=== PATIENT | male | born 1940 | race Caucasian/White ===

== ENCOUNTER 2017-04-20 07:52 | Inpatient (IN) ==
[2017-04-20] MEDS ORDERED: IOPAMIDOL 100 ML BOTTLE IJ ONE (07:53)
[2017-04-20] MEDS ORDERED: ASPIRIN 81 MG TAB.CHEW CHEWED ONE (08:05)
[2017-04-20] MEDS ORDERED: 0.9 % SODIUM CHLORIDE 1,000 ML IV ONE (08:08)
--- NOTE | 2017-04-20 08:20 | Emergency Department Note ---
SOB HPI - General Chief Complaint: Shortness of Breath/Dyspnea Stated Complaint: Sob x1 hour Time Seen by Provider: 04/20/17 07:58 Source: patient, EMS Mode of arrival: EMS Limitations: no limitations - History of Present Illness 76-year-old male with a history of Parkinson's has been complaining of shortness of breath and cough over the past week. Seen by his primary care provider in [place] Dr. Barnes performed chest x-rays week ago which was negative started on an antibiotic amoxicillin and an inhaler. States he does not like to use the inhaler and has not been using it. Been taking his antibiotic. Planing of increased shortness of breath or chest pain with radiation of pain to both arms this morning when he woke up approximately 1 hour ago. Has no cardiac history as he does not have atrial fibrillation but was told he had some extrasystoles in the past which were benign. He does state that he occasionally feels a cup-like sensation in his heart is pretty put him onFosinopril 10 mg 1/4 tab daily, patient states not been using it over the last 4 days. E MTs arrived they heard wheezing and he was started on a DuoNeb.. Has minimal wheezing at this time. It was a dull chest pain to the left chest 1 or 2/10. Arrived as dull in nature. He states gets anxiety attacks a lot. Not been diagnosed with atrial fibrillation his EKG shows A. fib. Rate of 119. Oxygen saturations are 95% on room air. - Related Data Home Medications Medication Instructions Recorded Confirmed Amantadine HCl [Amantadine] 50 mg PO BID 09/30/16 04/20/17 Calcium Carb/Vit B Comp/FA 1 each PO DAILY 09/30/16 04/20/17 [Complex B-50 Tablet] Carbidopa/Levodopa 1 each PO TID 09/30/16 04/20/17 [Carbidopa-Levodopa 25-100 Tab] Citalopram [Celexa] 10 mg PO DAILY 09/30/16 04/20/17 LORazepam [Ativan] 0.25 mg PO Q6HP PRN 09/30/16 04/20/17 Multivit-Min/FA/Lycopen/Lutein 1 each PO DAILY 09/30/16 04/20/17 [Centrum Silver Men Tablet] Triamterene/Hydrochlorothiazid 0.5 tab PO DAILY 09/30/16 04/20/17 [Triamterene-Hctz 37.5-25 mg Tb] Allergies Allergy/AdvReac Type Severity Reaction Status Date / Time No Known Drug Allergies Allergy Verified 04/20/17 07:56 Review of Systems All systems ED: reviewed and negative except as stated. Constitutional: Denies: fever, chills Cardiovascular: Reports: as per HPI, chest pain Respiratory: Reports: cough, dyspnea, wheezes Gastrointestinal: Denies: abdominal pain Genitourinary: Denies: urgency Musculoskeletal: Denies: back pain Integumentary: Denies: rash Neurological: Reports: other (Has Parkinson's has tremors). Denies: headache, weakness Past Medical History - Past Medical History Medical history: Reports: other (Parkinson's, chronic constipation issues) Surgical history ED: Reports: appendectomy, other (back) Family history: Reports: CAD/NH (father at 81) - Social History smoking status: Never smoker Alcohol use: Reports: None Drug use: Reports: none Physical Exam - General Limitations: no limitations General appearance: alert - Head Head exam: atraumatic, normocephalic - Eye Eye exam: Present: normal appearance, PERRL - ENT ENT exam: normal exam, normal oropharynx, mucous membranes moist - Neck Neck exam: Present: normal inspection, full ROM, trachea midline - Chest Chest inspection: Present: normal inspection, symmetric chest wall rise. Absent : tenderness - Respiratory Respiratory exam: Present: normal lung sounds bilaterally. Absent: respiratory distress, wheezes - Cardiovascular Cardiovascular exam: Present: regular rate, bradycardia, irregular rhythm. Absent: tachycardia - Abdominal Exam Abdominal exam: Present: soft. Absent: distention, tenderness, guarding, rebound - Extremities Exam Extremities exam: Present: normal inspection, full ROM. Absent: tenderness - Back Exam Back exam: Present: normal inspection, full ROM. Absent: tenderness - Neurological Exam Neurological exam: Present: alert, oriented X3, CN II-XII intact - Psychiatric Psychiatric exam: Present: normal affect, normal mood - Skin Skin exam: Present: warm, dry Course Vital Signs Temperature 96.9 F L 04/20/17 07:53 Pulse Rate 117 H 04/20/17 07:53 Respiratory Rate 11 L 04/20/17 07:53 Blood Pressure 174/106 04/20/17 07:53 Pulse Oximetry (%) 95 04/20/17 07:53 Temperature 96.9 F L 04/20/17 07:53 Pulse Rate 117 H 04/20/17 07:53 Respiratory Rate 11 L 04/20/17 07:53 Blood Pressure 174/106 04/20/17 07:53 Pulse Oximetry (%) 95 04/20/17 07:53 Shortness of Breath/Dyspnea - MDM Narrative Medical decision making narrative: Do not have any old EKGs at this time appears patient may have a new onset A. fib., This x-ray reveals CHF possible atelectasis or infiltrate in the right lower lobe. Read by the radiologist. Given Lasix 40 mg IV laboratory tests are still pending. Patient transferred to the care of Dr. Kiran at 0900 - Lab Data Result diagrams: 04/20/17 08:23 04/20/17 08:23 Disposition Pt seen by ENER[employer] [facility]OKER/PA only: No Referrals: Drew Barnes MD [Primary Care Provider] -
[2017-04-20] MEDS ORDERED: FUROSEMIDE 40 MG/4 ML VIAL IV ONE (08:52)
[2017-04-20 09:13] LABS: Basophils # (Auto) 0.1 K/mcL (0.0-0.3); Eosinophils # (Auto) 0.2 K/mcL (0.0-0.7); Eosinophils % (Auto) 3.6 % (0.0-7.0); Granulocytes % (Auto) 53.6 % (38.0-78.0); Lymphocytes # (Auto) 2.1 K/mcL (1.5-4.8); Lymphocytes % (Auto) 30.8 % (15.5-49.0); Mean Cell Volume 87.6 fL (80.0-100.0); Mean Corpuscular Hemoglobin 30.6 pg (26.0-34.0); Monocytes # (Auto) 0.8 K/mcL (0.1-0.9); Platelet Count 200 K/mcL (140-440); RBC 4.52 M/mcL (4.50-5.90); Red Cell Distribution Width 13.6 % (11.5-14.5)
[2017-04-20 09:20] LABS: Creatine Kinase MB 1.8 ng/ml (0-4.9); Myoglobin 55 ng/ml (28-72)
[2017-04-20 09:23] LABS: ALT/SGPT 10 U/l (0-40); Albumin 4.2 gm/dL (3.2-5.2); Albumin/Globulin Ratio 1.3 (1.0-2.3); Alkaline Phosphatase 78 U/L (39-117); Blood Urea Nitrogen 20 mg/dl (8-23); Creatine Kinase 155 IU/L (24-195)
--- NOTE | 2017-04-20 09:44 | XRay Report ---
CLINICAL INFORMATION: Chest pain COMPARISON: 04/11/2017 FINDINGS: The heart is moderately enlarged, but unchanged. Moderate hiatal hernia again noted. Mediastinum is otherwise normal. The pulmonary vessels are mildly congested with mild interstitial edema throughout both lungs. Minor basilar airspace disease likely atelectasis. IMPRESSION: 1. Mild CHF 2. Moderate hiatal hernia - stable 3. Minor bibasilar airspace seen - likely atelectasis Interpreted and Authenticated by: Subhash Peter 04/20/17
[2017-04-20 10:39] LABS: Appearance,Urine CLEAR; Bilirubin,Urine NEG (NEG); Color,Urine YELLOW; Glucose,Urine (UA) NEGATIVE (NEG); Leukocyte Esterase,Urine NEG /uL (NEG); Nitrate,Urine NEG (NEG); Protein,Urine NEG (NEG); Specific Gravity,Urine 1.015 (1.000-1.035); Urine Blood NEG mg/dL (<0.03); Urobilinogen,Urine NEG (NEG)
--- NOTE | 2017-04-20 11:18 | Emergency Department Note ---
General Adult HPI - General Chief complaint: Shortness of Breath/Dyspnea Stated complaint: Sob x1 hour Time Seen by Provider: 04/20/17 07:58 Source: patient, EMS Mode of arrival: EMS Limitations: no limitations - Related Data Home Medications Medication Instructions Recorded Confirmed Amantadine HCl [Amantadine] 50 mg PO BID 09/30/16 04/20/17 Calcium Carb/Vit B Comp/FA 1 each PO DAILY 09/30/16 04/20/17 [Complex B-50 Tablet] Carbidopa/Levodopa 1 each PO TID 09/30/16 04/20/17 [Carbidopa-Levodopa 25-100 Tab] Citalopram [Celexa] 10 mg PO DAILY 09/30/16 04/20/17 LORazepam [Ativan] 0.25 mg PO Q6HP PRN 09/30/16 04/20/17 Multivit-Min/FA/Lycopen/Lutein 1 each PO DAILY 09/30/16 04/20/17 [Centrum Silver Men Tablet] Triamterene/Hydrochlorothiazid 0.5 tab PO DAILY 09/30/16 04/20/17 [Triamterene-Hctz 37.5-25 mg Tb] Allergies Allergy/AdvReac Type Severity Reaction Status Date / Time No Known Drug Allergies Allergy Verified 04/20/17 07:56 Review of Systems Constitutional: Denies: fever, chills Cardiovascular: Reports: as per HPI, chest pain Respiratory: Reports: cough, dyspnea, wheezes Gastrointestinal: Denies: abdominal pain Genitourinary: Denies: urgency Musculoskeletal: Denies: back pain Integumentary: Denies: rash Neurological: Reports: other (Has Parkinson's has tremors). Denies: headache, weakness Past Medical History - Past Medical History Medical history: Reports: other (Parkinson's, chronic constipation issues) Surgical history ED: Reports: appendectomy, other (back) - Social History smoking status: Never smoker Alcohol use: Reports: None Drug use: Reports: none Physical Exam - General Limitations: no limitations General appearance: alert Course Vital Signs Temperature 96.9 F L 04/20/17 07:53 Pulse Rate 117 H 04/20/17 07:53 Respiratory Rate 11 L 04/20/17 07:53 Blood Pressure 174/106 04/20/17 07:53 Pulse Oximetry (%) 95 04/20/17 07:53 Temperature 96.9 F L 04/20/17 07:53 Pulse Rate 84 04/20/17 10:24 Respiratory Rate 20 04/20/17 10:24 Blood Pressure 104/58 04/20/17 10:24 Pulse Oximetry (%) 96 04/20/17 10:17 Medical Decision Making - MDM Narrative Medical decision making narrative: See documentation from Dr. Nixon who saw the patient before change of shift and then I have followed after change of shift. Patient his report that he is generally been fairly healthy but with further questioning he did have a history of irregular heart but it was described as just a few beats and was reassured. 2 years ago though he was told that his left heart was not working as well and possibly was enlarged. He was tried on lisinopril but did not tolerate and then was tried on fosinopril which he takes as one fourth of a tablet at 10 mg. He was not put on furosemide but on Maxide also due to his relatively low blood pressure. Yesterday was seen by his primary physician, Dr. Barnes, and treated for bronchitis with amoxicillin and albuterol. He used the albuterol once last night and it did not do a whole lot of anything special for him. In the emergency room he remained relatively stable but blood pressures were in the 95 range. Pulse in the 85-90 range with new onset A. fib. His elevated BNP and abnormal chest x-ray were compatible with CHF. Because of the elevated d-dimer and possible infiltrates, CT angiogram was obtained and was indicative of small PEs in the right upper and right lower lung tripathi. Other labs include a lactic acid that was negative at 1.0 and troponin less than 0.01. His proBNP was 1170. Glucose was 108. Creatinine 1.2. Liver enzymes were unremarkable. CBC was with a white count of 6.9 hemoglobin 13.9 hematocrit 39.6. INR was 1.0. UA was unremarkable. EKG with possible prolonged QT interval, A. fib, and left axis deviation. Initial heart rate on the EKG was 119 but with him at bedrest he was in the upper 80s. Coronary artery calcifications were found to be heavy and diffuse. Discussing the circumstances he obviously needs additional workup and monitoring and treatment. Hospitalist was contacted who agreed to assume care. - Lab Data Result diagrams: 04/20/17 08:23 04/20/17 08:23 Lab Results 04/20/17 04/20/17 04/20/17 Range/Units 08:23 08:23 08:23 WBC 6.9 (4.5-11.0) K/mcL RBC 4.52 (4.50-5.90) M/mcL Hgb 13.9 (13.5-16.5) g/dL Hct 39.6 L (41.0-55.0) % MCV 87.6 (80.0-100.0) fL MCH 30.6 (26.0-34.0) pg MCHC 35.0 (31.0-36.0) g/dL RDW 13.6 (11.5-14.5) % Plt Count 200 (140-440) K/mcL MPV 9.0 (7.4-10.4) fL Gran % 53.6 (38.0-78.0) % Lymph % (Auto) 30.8 (15.5-49.0) % Vance % (Auto) 11.0 (1.0-12.0) % Eos % (Auto) 3.6 (0.0-7.0) % Baso % (Auto) 1.0 (0.0-2.0) % Gran # 3.7 (1.8-8.0) K/mcL Lymph # (Auto) 2.1 (1.5-4.8) K/mcL [place] # (Auto) 0.8 (0.1-0.9) K/mcL Eos # (Auto) 0.2 (0.0-0.7) K/mcL Baso # (Auto) 0.1 (0.0-0.3) K/mcL PT 13.0 (11.9-14.5) sec INR 1.0 (0.9-1.1) D-Dimer 2.42 H (0.00-0.40) ug/ml VBG Lactic Acid (0.5-2.2) mmol/L Sodium 140 (133-145) mmol/L Potassium 3.9 (3.3-5.1) mmol/L Chloride 101 (96-108) mmol/L Carbon Dioxide 25 (22-30) mmol/L Anion Gap 14.0 (8-16) BUN 20 (8-23) mg/dl Creatinine 1.2 (0.7-1.2) mg/dl GFR Calculation 59 Glucose 108 H (70-105) mg/dL Calcium 9.2 (8.6-10.4) mg/dl Total Bilirubin 0.3 (0.0-1.0) mg/dL AST 20 (0-37) U/l ALT 10 (0-40) U/l Alkaline Phosphatase 78 (39-117) U/L Total Creatine Kinase 155 (24-195) IU/L CK-MB (CK-2) 1.8 (0-4.9) ng/ml Myoglobin 55 (28-72) ng/ml Troponin T (0-0.03) ng/ml NT-Pro-B Natriuret Pep 1170.0 H (0-125) pg/ml Total Protein 7.4 (5.9-8.4) gm/dL Albumin 4.2 (3.2-5.2) gm/dL Globulin 3.2 (2.2-3.7) gm/dL Albumin/Globulin Ratio 1.3 (1.0-2.3) Urine Color Urine Appearance Urine pH (5.0-9.0) Ur Specific [place] (1.000-1.035) Urine Protein (NEG) mg/dL Urine Glucose (UA) (NEG) mg/dL Urine Ketones (NEG) mg/dL Urine Occult Blood (<0.03) mg/dL Urine Nitrate (NEG) Urine Bilirubin (NEG) mg/dL Urine Urobilinogen (NEG) mg/dL Ur Leukocyte Esterase (NEG) /uL Ur Culture Indicated? 04/20/17 04/20/17 04/20/17 Range/Units 08:23 09:12 09:40 WBC (4.5-11.0) K/mcL RBC (4.50-5.90) M/mcL Hgb (13.5-16.5) g/dL Hct (41.0-55.0) % MCV (80.0-100.0) fL MCH (26.0-34.0) pg MCHC (31.0-36.0) g/dL RDW (11.5-14.5) % Plt Count (140-440) K/mcL MPV (7.4-10.4) fL Gran % (38.0-78.0) % Lymph % (Auto) (15.5-49.0) % Vance % (Auto) (1.0-12.0) % Eos % (Auto) (0.0-7.0) % Baso % (Auto) (0.0-2.0) % Gran # (1.8-8.0) K/mcL Lymph # (Auto) (1.5-4.8) K/mcL [place]ance # (Auto) (0.1-0.9) K/mcL Eos # (Auto) (0.0-0.7) K/mcL Baso # (Auto) (0.0-0.3) K/mcL PT (11.9-14.5) sec INR (0.9-1.1) D-Dimer (0.00-0.40) ug/ml VBG Lactic Acid 1.0 (0.5-2.2) mmol/L Sodium (133-145) mmol/L Potassium (3.3-5.1) mmol/L Chloride (96-108) mmol/L Carbon Dioxide (22-30) mmol/L Anion Gap (8-16) BUN (8-23) mg/dl Creatinine (0.7-1.2) mg/dl GFR Calculation Glucose (70-105) mg/dL Calcium (8.6-10.4) mg/dl Total Bilirubin (0.0-1.0) mg/dL AST (0-37) U/l ALT (0-40) U/l Alkaline Phosphatase (39-117) U/L Total Creatine Kinase (24-195) IU/L CK-MB (CK-2) (0-4.9) ng/ml Myoglobin (28-72) ng/ml Troponin T < 0.01 (0-0.03) ng/ml NT-Pro-B Natriuret Pep (0-125) pg/ml Total Protein (5.9-8.4) gm/dL Albumin (3.2-5.2) gm/dL Globulin (2.2-3.7) gm/dL Albumin/Globulin Ratio (1.0-2.3) Urine Color Yellow Urine Appearance Clear Urine pH 6.0 (5.0-9.0) Ur Specific [place] 1.015 (1.000-1.035) Urine Protein Neg (NEG) mg/dL Urine Glucose (UA) Negative (NEG) mg/dL Urine Ketones Neg (NEG) mg/dL Urine Occult Blood Neg (<0.03) mg/dL Urine Nitrate Neg (NEG) Urine Bilirubin Neg (NEG) mg/dL Urine Urobilinogen Neg (NEG) mg/dL Ur Leukocyte Esterase Neg (NEG) /uL Ur Culture Indicated? No Disposition Pt seen by TABLE COVER FOLDER/PA only: No Clinical Impression: Cardiomegaly, Coronary artery calcification of [place] artery, Parkinson disease Pulmonary emboli Qualifiers: Pulmonary embolism type: other Chronicity: acute Acute cor pulmonale presence: without acute cor pulmonale Qualified Code(s): I26.99 - Other pulmonary embolism without acute cor pulmonale Atrial fibrillation Qualifiers: Atrial fibrillation type: unspecified Qualified Code(s): I48.91 - Unspecified atrial fibrillation CHF exacerbation Qualifiers: Congestive heart failure type: systolic Qualified Code(s): I50.23 - Acute on chronic systolic (congestive) heart failure Disposition: Xfer As Inpt ([facility]) Referrals: Drew Barnes MD [Primary Care Provider] -
[2017-04-20] MEDS ORDERED: ENOXAPARIN 100 MG/ML SYRINGE SQ ONE (11:20)
--- NOTE | 2017-04-20 12:18 | Internal Med History&Physical ---
Medical - H&P: HPI Patient information: Note initiated : 04/20/17 at 12:16 pm Patient: Geoffrey Purdy 76 y/o M admitted on for SOB and chest pain. History of present illness: Mr. Purdy is a 76 year old man who presents today complaining of left-sided chest discomfort since this morning. He apparently saw his primary care physician about 1 week ago complaining of cough and shortness of breath, and was treated for bronchitis with antibiotics, which he took, and an inhaler, which he did not. He also went back to see his primary care physician yesterday , complaining of continued chest congestion. They told him to complete the amoxicillin, and use the inhaler as needed. He notes that he has been sitting around quite a bit over the last week, as he is just been quite fatigued. 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 This morning he was resting in his recliner, and says he awakened with pain process chest that extended down into both arms. He says sometimes he will have that sensation when he is feeling anxious, so he did not worry but thought it would pass, it did not pass after several minutes, so he did call 911. He says a week ago he was coughing up thick chunks of sputum, and now his sputum seems clear. He is noticing more shortness of breath, particularly more dyspnea with exertion over the last week. He is not aware of fever or chills, headaches or dizziness, new eye or ear symptoms, sore throat. He denies palpitations. He denies abdominal pain, nausea or vomiting, diarrhea or constipation, dysuria. His notes that they have been cleaning out the patient's parents house, and he opened a refrigerator that had been open for a couple of years, and there was a great stench that came out of the air. She wonders if that could have affected his lungs. In the emergency room today, he had a positive d-dimer. He subsequently underwent CT of the chest which did show pulmonary emboli. Workup was also suggestive of heart failure and new onset atrial fibrillation. The patient generally does not get flu shots, as he does not like to take any sort of medicine. His chart indicates he did have a Pneumovax in April 2016. Past medical history: Parkinson's disease Constipation Depression Fatigue Lumbar spondylosis with radiculopathy Depression and panic disorder, anxiety CHF with ejection fraction 45% in July 2015 venous insufficiency Anemia Past irregular heart rate, with extra beats Obesity Hypogonadism Hyperlipidemia Stage II chronic kidney disease Hypertension Medications: Dyazide 37.525 1 tab daily Carbidopa levodopa 25-100 1 tab 4 times daily Vitamin D 5000 units daily Lorazepam 1 mg a quarter tablet 3 times daily as needed Amantadine 100 mg half tab p.o. twice daily Aleve 220 mg twice a day as needed, used rarely Fosinopril 10 mg a quarter tablet daily Celexa 10 mg half tab daily Amoxicillin 875 mg 1 tab twice daily Ventolin inhaler 2 puffs 4 times daily as needed Robitussin AC 1 teaspoon every 4 hours as needed Tussionex 1 teaspoon twice daily as needed Lasix 40 mg was just started yesterday, but not taken Allergies: Gabapentin Lisinopril Family history: Father had coronary disease, [place]. Mother with dementia and history of stroke. Brother had diabetes and coronary disease.. Social history: Patient denies use of alcohol, tobacco, drugs. He is and lives with his . 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 He has been much more sedentary than usual over the last week. Medical - H&P: Meds Home Medications Medication Instructions Recorded Confirmed Type Amantadine HCl [Amantadine] 50 mg PO BID 09/30/16 04/20/17 History Calcium Carb/Vit B Comp/FA 1 each PO DAILY 09/30/16 04/20/17 History [Complex B-50 Tablet] Carbidopa/Levodopa 1 each PO TID 09/30/16 04/20/17 History [Carbidopa-Levodopa 25-100 Tab] Citalopram [Celexa] 5 mg PO DAILY 09/30/16 04/20/17 History LORazepam [Ativan] 0.25 mg PO Q6HP PRN 09/30/16 04/20/17 History Multivit-Min/FA/Lycopen/Lutein 1 each PO DAILY 09/30/16 04/20/17 History [Centrum Silver Men Tablet] Triamterene/Hydrochlorothiazid 1 tab PO DAILY 09/30/16 04/20/17 History [Triamterene-Hctz 37.5-25 mg Tb] Allergies Allergy/AdvReac Type Severity Reaction Status Date / Time No Known Drug Allergies Allergy Verified 04/20/17 07:56 Medical - H&P: Exam - Constitutional Vitals: Temp Pulse Resp BP Pulse Ox 96.9 F L 38 L 19 144/76 93 04/20/17 07:53 04/20/17 11:48 04/20/17 11:48 04/20/17 11:48 04/20/17 11:48 This is an elderly man sitting up in bed, eating dinner. He is in no acute distress. Head: Normocephalic, atraumatic. Ears: TMs and canals are clear. Eyes: PERRLA, EOMI, anicteric, although there is a slight right upper lid droop Pharynx: Pharynx is clear. Mucosa appears normal. Neck: Shows no obvious lymphadenopathy, JVD, thyromegaly, bruits. Neck is supple. Cardiac exam: Irregularly irregular rhythm, with normal S1 and S2. No murmurs, rubs, gallops are noted Lungs: Show fairly diffuse crackles and wheezes throughout both lung tripathi. There is no obvious accessory muscle use. She has a frequent congested sounding cough. Abdomen: Is soft and nontender, without obvious masses. Bowel sounds are normoactive. Extremities: Show 2-3+ pitting edema two thirds of the way up his shins. Neurologic: Patient is alert and oriented. Mood and affect are normal. He does appear to have a masked facies. Resting tremor is noted, particularly in the right hand. Exam is otherwise grossly nonfocal, but not tested in detail. Skin exam: Does not show any rashes or other worrisome lesions. Medical - H&P: Reslt - Labs CBC & Chem 7: 04/20/17 08:23 04/20/17 08:23 Labs: Short CBC 04/20/17 Range/Units 08:23 WBC 6.9 (4.5-11.0) K/mcL Hgb 13.9 (13.5-16.5) g/dL Hct 39.6 L (41.0-55.0) % Plt Count 200 (140-440) K/mcL BMP 04/20/17 08:23 Sodium 140 Potassium 3.9 Chloride 101 Carbon Dioxide 25 BUN 20 Creatinine 1.2 Glucose 108 H Calcium 9.2 Cardiac Enzymes 04/20/17 04/20/17 Range/Units 08:23 08:23 Total Creatine Kinase 155 (24-195) IU/L CK-MB (CK-2) 1.8 (0-4.9) ng/ml Troponin T < 0.01 (0-0.03) ng/ml Liver Function 04/20/17 Range/Units 08:23 Total Bilirubin 0.3 (0.0-1.0) mg/dL AST 20 (0-37) U/l ALT 10 (0-40) U/l Alkaline Phosphatase 78 (39-117) U/L Albumin 4.2 (3.2-5.2) gm/dL Urine 04/20/17 Range/Units 09:40 Urine Color Yellow Urine Appearance Clear Urine pH 6.0 (5.0-9.0) Ur Specific [place] 1.015 (1.000-1.035) Urine Protein Neg (NEG) mg/dL Urine Glucose (UA) Negative (NEG) mg/dL April 20: D-dimer is elevated at 2.42 PT is 13 with INR of 1.0 Lactic acid is normal at 1.0 Initial troponin is normal at less than 0.01. Troponin #2 is elevated at 0.08. ProBNP is elevated at 1170. Next Urinalysis is essentially normal. Echocardiogram: Was done, with results pending. CT angiogram: Small emboli are seen within the segmental and subsegmental pulmonary arteries to the anterior segment of the right upper lobe and medial posterior basilar segmental right lower lobe. Mild enlargement of central pulmonary arteries suggest pulmonary hypertension. Mild underlying CHF. Heavy and chronic plaque throughout all coronary arteries. Moderate underlying chronic bronchitis, with bronchiectasis noted in the medial basilar segment of the left lower lobe. Moderate hiatal hernia. Chest x-ray: Shows moderate cardiomegaly. Mild pulmonary vascular congestion, consistent with CHF. Mild bibasilar atelectasis. Medical - H&P: A/P (1) Elevated troponin I level Current visit: Yes Status: Acute (2) Pulmonary emboli Current visit: Yes Status: Acute (3) Atrial fibrillation Current visit: Yes Status: Acute (4) CHF exacerbation Current visit: Yes Status: Acute (5) Parkinson disease Current visit: No Status: Chronic - Narrative A/P Narrative: #1. Pulmonary. Patient presents with chest pain and shortness of breath. CT scan is positive for pulmonary emboli. -Patient was loaded with Lovenox in the emergency room. Continue subcu Lovenox , therapeutic dose. -Start oral Coumadin. -Monitor on telemetry. -Oxygen, albuterol nebulizer treatments, pulmonary toilet, cough meds as needed 2. Cardiac. Chest x-ray and CAT scan are suggestive of mild CHF exacerbation. -IV Lasix. -Monitor closely. Atrial fibrillation. This appears to be a new finding. This may be in response to pulmonary emboli, or a separate process. -Patient will be anticoagulated with Lovenox. He will then be transitioned to Coumadin. I discussed with he and his that he may need long-term anticoagulation if the A. fib persists. -At this point, he is rate controlled. Continue to monitor. Elevated troponin. It is unclear if this might be due to his CHF exacerbation and pulmonary emboli. -Order EKG. -Trend troponins. -Consider cardiology consult. 3. Neurologic. History of Parkinson's disease. Continue Sinemet and amantadine. -encouraged the patient to consider follow-up with a neurology specialist at least once a year. -PT and OT evaluations. Swallow eval. #4. Infectious disease. Patient has had a recent upper respiratory infection. It appears he may have bronchitis, which may be stressing his heart more. Cover with empiric Rocephin and Zithromax. Next 5. CODE STATUS: Next 6. DVT prophylaxis: Lovenox. 7. History of depression and anxiety. Continue Celexa, as needed Ativan. This visit has taken approximately 60 minutes so far today, to review records obtained from the primary care office, review the case with the ER MD, interview and examine the patient, review plan of care with the patient and his , and write orders.
--- NOTE | 2017-04-20 12:54 | Cat Scan Report ---
CLINICAL INFORMATION: Shortness of breath elevated d-dimer COMPARISON: None TECHNIQUE: Axial images obtained through the chest. 80 cc intravenous contrast administration was administered, and scanning was performed during pulmonary arterial phase. Sagittally and coronally reformatted images were obtained. MIP reformatted images. FINDINGS: Pulmonary parenchymal windows show mild chronic bronchitis examination with elevated lung volumes and slight dilatation and wall thickening of the bronchi. Cicitration atelectasis noted medial basilar segment left lower lobe and scattered scarring in the periphery of both lower lobes no nodules appreciated. The pleural spaces are normal Mediastinal windows show small emboli in the anterior segment of the right upper lobe and segmental and subsegmental right lower lobe pulmonary arteries including the medial and posterior basilar segments. There are no emboli seen within the left lower lobe pulmonary arteries. The central pulmonary arteries are mildly enlarged with the main pulmonary artery measuring 4.2 cm. There is no evidence of right heart chamber enlargement suggestive elevated right heart pressures. The heart is mildly enlarged and there is calcification present within the mitral and aortic valves. There is mild dilatation of left ventricular chamber. Extraordinarily heavy fibrofatty and calcific atherosclerotic plaque seen throughout all the coronary arteries. There is no adenopathy in the mediastinal hilar or axillary regions. Moderate hiatal hernia is noted The thyroid is unremarkable. Bones and soft tissues of the chest wall are unremarkable. IMPRESSION: 1. Small emboli within the segmental and subsegmental pulmonary arteries to the anterior segment right upper lobe and medial/posterior basilar segmental right lower lobe. 2. Mild enlargement of the central pulmonary arteries suggesting pulmonary hypertension. 3. Mild underlying CHF - better seen on plain film. Extremely heavy fibrofatty and calcific atheromatous chronic plaque throughout all the coronary arteries. It is highly likely the patient has either occlusive or subocclusive coronary artery disease. Suggest cardiology referral for stress testing 4. Moderate underlying chronic bronchitis. Chronic cicitration bronchiectasis/atelectasis medial basilar segment left lower lobe 5. Moderate hiatal hernia Interpreted and Authenticated by: Subhash Peter 04/20/17
[2017-04-20] MEDS ORDERED: ONDANSETRON 4 MG/2 ML VIAL IV PRN (14:12)
[2017-04-20] MEDS ORDERED: ALBUTEROL SULFATE 2.5 MG/3 ML NEBULIZER NEB PRN (14:12)
[2017-04-20] MEDS ORDERED: NALOXONE HCL 0.4 MG/ML VIAL IV PRN (14:12)
[2017-04-20] MEDS ORDERED: MAGNESIUM HYDROXIDE 30 ML ORAL.SUSP PO PRN (14:12)
[2017-04-20] MEDS: WARFARIN 5 MG TABLET PO SCH (15:50)
[2017-04-20] MEDS: CARBIDOPA/LEVODOPA 25/100 TABLET PO SCH ×2 (15:50→20:07)
[2017-04-20] MEDS: ACETAMINOPHEN 325 MG TABLET PO PRN (19:29)
[2017-04-20] MEDS: ENOXAPARIN 100 MG/ML SYRINGE SQ SCH (20:07)
[2017-04-20] MEDS: DOCUSATE SODIUM 100 MG CAPSULE PO SCH (20:07)
[2017-04-20] MEDS: AMANTADINE HCL 50 MG PO SCH (20:07)
[2017-04-20] MEDS: FAMOTIDINE 20 MG TABLET PO SCH (20:07)
[2017-04-21] MEDS: LORazepam 1 MG TABLET PO PRN (00:55)
[2017-04-21] MEDS ORDERED: METOPROLOL TARTRATE 5 MG/5 ML VIAL IV ONE ×2 (03:13→03:24)
[2017-04-21] MEDS ORDERED: LORazepam 2 MG/ML VIAL IV ONE (03:33)
[2017-04-21] MEDS ORDERED: LORazepam 2 MG/ML VIAL ONE (03:44)
[2017-04-21] MEDS ORDERED: METOPROLOL TARTRATE 5 MG/5 ML VIAL IV PRN (07:42)
[2017-04-21] MEDS ORDERED: LORazepam 2 MG/ML VIAL IV PRN (07:44)
[2017-04-21] MEDS ORDERED: ASPIRIN 81 MG TAB.CHEW PO ONE (08:00)
[2017-04-21 08:12] LABS: ALT/SGPT < 5 U/l (0-40); Albumin 3.9 gm/dL (3.2-5.2); Albumin/Globulin Ratio 1.2 (1.0-2.3); Alkaline Phosphatase 78 U/L (39-117); Bilirubin,Direct < 0.2 mg/dL (0.0-0.3); Blood Urea Nitrogen 23 mg/dl (8-23); Gamma Glutamyl Transpeptidase 18 U/L (8-61); Magnesium 2.1 mg/dL (1.6-2.5); Uric Acid 7.5 mg/dL (2.5-8.0)
[2017-04-21] MEDS: DOCUSATE SODIUM 100 MG CAPSULE PO SCH ×2 (08:34→20:41)
[2017-04-21] MEDS: MULTIVIT,THER IRON,CA,FA & MIN 1 TABLET PO SCH (08:34)
[2017-04-21] MEDS: FAMOTIDINE 20 MG TABLET PO SCH ×2 (08:34→20:41)
[2017-04-21] MEDS: ENOXAPARIN 100 MG/ML SYRINGE SQ SCH ×2 (08:34→20:41)
[2017-04-21] MEDS: CARBIDOPA/LEVODOPA 25/100 TABLET PO SCH ×3 (08:34→20:52)
[2017-04-21] MEDS: VITAMIN B COMPLEX 1 CAPSULE PO SCH (08:34)
[2017-04-21] MEDS: CITALOPRAM 20 MG TABLET PO SCH (08:34)
[2017-04-21] MEDS: AMANTADINE HCL 50 MG PO SCH ×2 (08:35→20:35)
[2017-04-21] MEDS: CARVEDILOL 3.125 MG TABLET PO SCH ×2 (08:39→17:28)
[2017-04-21 09:58] LABS: Basophils # (Auto) 0.1 K/mcL (0.0-0.3); Basophils % (Auto) 0.7 % (0.0-2.0); Eosinophils # (Auto) 0.2 K/mcL (0.0-0.7); Eosinophils % (Auto) 1.8 % (0.0-7.0); Granulocytes % (Auto) 64.8 % (38.0-78.0); Lymphocytes # (Auto) 1.9 K/mcL (1.5-4.8); Lymphocytes % (Auto) 21.7 % (15.5-49.0); Mean Cell Volume 86.6 fL (80.0-100.0); Mean Corpuscular HGB Conc 34.1 g/dL (31.0-36.0); Mean Corpuscular Hemoglobin 29.6 pg (26.0-34.0); Monocytes # (Auto) 0.9 K/mcL (0.1-0.9); Platelet Count 229 K/mcL (140-440); RBC 4.88 M/mcL (4.50-5.90); Red Cell Distribution Width 13.6 % (11.5-14.5)
--- NOTE | 2017-04-21 10:24 | Internal Med Progress Note ---
Medical - PN: Subj Patient information: Note initiated : 04/21/17 at 10:24 am Patient: Geoffrey Purdy 76 y/o M admitted on 04/20/17 for SOB x 1 Hour. Interval history: April 20, 2017: History of present illness: Mr. Purdy is a 76 year old man who presents today complaining of left-sided chest discomfort since this morning. He apparently saw his primary care physician about 1 week ago complaining of cough and shortness of breath, and was treated for bronchitis with antibiotics, which he took, and an inhaler, which he did not. He also went back to see his primary care physician yesterday , complaining of continued chest congestion. They told him to complete the amoxicillin, and use the inhaler as needed. He notes that he has been sitting around quite a bit over the last week, as he is just been quite fatigued. 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 This morning he was resting in his recliner, and says he awakened with pain process chest that extended down into both arms. He says sometimes he will have that sensation when he is feeling anxious, so he did not worry but thought it would pass, it did not pass after several minutes, so he did call 911. He says a week ago he was coughing up thick chunks of sputum, and now his sputum seems clear. He is noticing more shortness of breath, particularly more dyspnea with exertion over the last week. He is not aware of fever or chills, headaches or dizziness, new eye or ear symptoms, sore throat. He denies palpitations. He denies abdominal pain, nausea or vomiting, diarrhea or constipation, dysuria. His notes that they have been cleaning out the patient's parents house, and he opened a refrigerator that had been open for a couple of years, and there was a great stench that came out of the air. She wonders if that could have affected his lungs. In the emergency room today, he had a positive d-dimer. He subsequently underwent CT of the chest which did show pulmonary emboli. Workup was also suggestive of heart failure and new onset atrial fibrillation. The patient generally does not get flu shots, as he does not like to take any sort of medicine. His chart indicates he did have a Pneumovax in April 2016. April 21: -Today, the patient says his breathing is much easier. He also has less cough. He has not had any further chest pain. He denies palpitations. He did diurese over 2 L overnight. -Weighted heart rate was controlled with IV Lopressor. Coreg was started this morning. -Initial troponins were elevated, but are trending downward this morning. His EKG did not show any acute changes. Echocardiogram shows severe left ventricular global hypokinesis with reduced ejection fraction. CT scan from yesterday also showed significant plaques in all of his coronary arteries. -Overnight he did have heart rates up into the 130s. He also was feeling quite anxious. He received oral and then IV Ativan, and eventually felt more relaxed. The patient is on therapeutic dose Lovenox, and has also started Coumadin. Otherwise, he denies fever or chills. He reports his cough has decreased significantly. He denies chest pain or palpitations, and has much less shortness of breath. He denies abdominal pain, nausea or vomiting, diarrhea or constipation or dysuria. - Constitutional Vitals: Vital Signs Temp Pulse Resp BP Pulse Ox 97.7 F 109 H 18 118/68 93 04/21/17 08:18 04/21/17 04:00 04/21/17 08:18 04/21/17 08:46 04/21/17 08:18 Period Temp Pulse Resp BP Sys/Brown Pulse Ox Last 24 Hr 97.7 F-98.8 F 37-109 18-22 58-166/21-134 90-95 Intake and Output 04/20/17 04/21/17 04/21/17 21:59 05:59 13:59 Output Total 600 / 600 250 / 250 Balance -600 / -600 -250 / -250 Weight 246 lb Intake & Output: Intake & Output 04/20/17 04/21/17 04/21/17 21:59 05:59 13:59 Output Total 600 / 600 250 / 250 Balance -600 / -600 -250 / -250 Weight 246 lb Output: Void Amount 600 / 600 250 / 250 He is sitting up in a chair, having breakfast. He is in no acute distress. Temperature 97.7, heart rate ranges from 86-130. Respiratory rate 18. Blood pressure 1022 118/58-68, O2 saturation 93% on room air Intake and output overnight shows diuresis of 2150 mL Neck is supple without obvious JVD or lymphadenopathy. Cardiac exam shows an irregularly irregular rhythm. Lungs: Have crackles at the bases, but are fairly clear above. Abdomen is soft and nontender. Extremities: Continue to show at least 2+ pitting edema to mid caldera. Medical - PN: Obj Da - Labs CBC & Chem 7: 04/22/17 04:00 04/22/17 04:00 Labs: Abnormal Lab Results 04/21/17 04/21/17 04/20/17 04:42 04:40 19:28 Hct D-Dimer Carbon Dioxide 21 L Anion Gap 21.0 H Creatinine 1.3 H Glucose Troponin T 0.05 H* 0.09 H* NT-Pro-B Natriuret Pep 04/20/17 04/20/17 04/20/17 14:27 08:23 08:23 Hct D-Dimer 2.42 H Carbon Dioxide Anion Gap Creatinine Glucose 108 H Troponin T 0.08 H* NT-Pro-B Natriuret Pep 1170.0 H 04/20/17 08:23 Hct 39.6 L D-Dimer Carbon Dioxide Anion Gap Creatinine Glucose Troponin T NT-Pro-B Natriuret Pep April 21: EK:08 AM: Atrial fibrillation at a rate of 92, with just a hint of ST sagging in leads V4 through V6. No significant change from yesterday's EKG. Troponin this morning has dropped to 0.05 Blood cultures are negative so far. Echocardiogram: Shows moderate global hypokinesis of the left ventricle, with reduced systolic function, ejection fraction 36%. There is also evidence of grade 2 diastolic dysfunction. Left ventricle is mildly dilated, and there is borderline LVH. Left atrium is moderate to severely dilated. Moderate posterior mitral annular calcification. Calcified mitral valve chordae. Borderline pulmonary hypertension. Aortic root sclerosis. April 20: EK PM: Sinus rhythm with wandering atrial pacemaker. Left axis deviation. No significant change from April 20 earlier in the day. EK:52 AM: Atrial fibrillation at a rate of 119, left axis deviation, no acute appearing ST-T changes. D-dimer is elevated at 2.42 PT is 13 with INR of 1.0 Lactic acid is normal at 1.0 Initial troponin is normal at less than 0.01. Troponin #2 is elevated at 0.08. ProBNP is elevated at 1170. Next Urinalysis is essentially normal. Echocardiogram: Was done, with results pending. CT angiogram: Small emboli are seen within the segmental and subsegmental pulmonary arteries to the anterior segment of the right upper lobe and medial posterior basilar segmental right lower lobe. Mild enlargement of central pulmonary arteries suggest pulmonary hypertension. Mild underlying CHF. Heavy and chronic plaque throughout all coronary arteries. Moderate underlying chronic bronchitis, with bronchiectasis noted in the medial basilar segment of the left lower lobe. Moderate hiatal hernia. Chest x-ray: Shows moderate cardiomegaly. Mild pulmonary vascular congestion, consistent with CHF. Mild bibasilar atelectasis. Meds: Medications Acetaminophen (Tylenol) 650 mg PO Q6HP PRN PRN Reason: PAIN/FEVER > 101 Last Admin: 04/20/17 19:29 Dose: 650 mg Albuterol Sulfate (Ventolin) 2.5 mg NEB Q4HRT PRN PRN Reason: Shortness Of Breath Or Wheezing Carbidopa/Levodopa (Sinemet 25/100) 1 tab PO TID [facility] Last Admin: 04/21/17 08:34 Dose: 1 tab Carvedilol (Coreg) 3.125 mg PO BIDCC [facility] Last Admin: 04/21/17 08:39 Dose: 3.125 mg Citalopram Hydrobromide (Celexa) 10 mg PO DAILY [facility] Last Admin: 04/21/17 08:34 Dose: 10 mg Docusate Sodium (Colace) 100 mg PO BID [facility] Last Admin: 04/21/17 08:34 Dose: 100 mg Enoxaparin Sodium (Lovenox) 100 mg SQ BID [facility] Last Admin: 04/21/17 08:34 Dose: 100 mg Famotidine (Pepcid) 20 mg PO BID [facility] Last Admin: 04/21/17 08:34 Dose: 20 mg Iron Carb/Multivit/Filter Press Tender Head/Folic Acid (Multivitamin W/Minerals) 1 tab PO DAILY [facility] Last Admin: 04/21/17 08:34 Dose: 1 tab Lorazepam (Ativan) 0.25 mg PO Q6HP PRN PRN Reason: Anxiety Last Admin: 04/21/17 00:55 Dose: 0.25 mg Lorazepam (Ativan) 0.25 mg IV Q2-4HP PRN PRN Reason: ANXIETY/SEDATION Magnesium Hydroxide (Milk Of Magnesia) 30 ml PO DAILYP PRN PRN Reason: Constipation Metoprolol Tartrate (Lopressor) 5 mg IV Q4HP PRN PRN Reason: Tachyarrhythmias Last Admin: 04/21/17 08:14 Dose: 5 mg Morphine Sulfate (Morphine) 2 mg IV Q2H PRN PRN Reason: Chest Pain Naloxone HCl (Narcan) 0.1 mg IV Q2MIN PRN PRN Reason: Opiate Reversal Ondansetron HCl (Zofran) 4 mg IV Q4HP PRN PRN Reason: Nausea And Vomiting Amantadine Hcl 50 Mg (Tab) 1 dose PO BID [facility] Last Admin: 04/21/17 08:35 Dose: Not Given Vitamin B Complex (Vitamin B Complex) 1 cap PO DAILY [facility] Last Admin: 04/21/17 08:34 Dose: 1 cap Warfarin Sodium (Coumadin Per Pharmacy) 1 order PO UD [facility] Warfarin Sodium (Coumadin) 5 mg PO DAILY@1400 [facility] Last Admin: 04/20/17 15:50 Dose: 5 mg Medical - PN: A/P - Time Spent With Patient Total time spent is greater than 50% in coordination of care (as documented) at patient's floor/unit and/or counseling patient: Greater than 35 minutes (1) Elevated troponin I level Status: Acute Current Visit: Yes (2) Pulmonary emboli Status: Acute Current Visit: Yes (3) Atrial fibrillation Status: Acute Current Visit: Yes (4) CHF exacerbation Status: Acute Current Visit: Yes (5) Parkinson disease Status: Chronic Current Visit: No - Narrative A/P Narrative: #1. Pulmonary. Patient presents with chest pain and shortness of breath. CT scan is positive for pulmonary emboli. Signs and symptoms are also consistent with new onset A. fib and new onset CHF exacerbation. -Patient was loaded with Lovenox in the emergency room. Continue subcu Lovenox , therapeutic dose. Coumadin was started yesterday as well. -Monitor on telemetry. -Oxygen, albuterol nebulizer treatments, pulmonary toilet, cough meds as needed 2. Cardiac. Chest x-ray and CAT scan are suggestive of mild CHF exacerbation. -Patient diuresed well overnight, and is clinically improved today. Oral Lasix started as well. Echocardiogram shows significant LV dysfunction. Start trial of Coreg and losartan. Continue oral Lasix. -Monitor closely. Atrial fibrillation. This appears to be a new finding. This may be in response to pulmonary emboli, or a separate process. -Patient is anticoagulated on Lovenox, and will be transitioned to Coumadin. Echocardiogram findings would suggest that A. fib will be more or less permanent , and he should consider long-term anticoagulation. Elevated troponin. -I suspect he had more cardiac strain issues related to the PE, then acute [place]. Troponin is trending downward. There were no EKG changes. However, he has significant coronary plaques on CT scan, and should undergo follow-up cardiac evaluation, possibly with a clear stress test and/or an angiogram. -He is clearly at high risk, so I have started aspirin and Lipitor. -Since he has not tolerated lisinopril in the past, I will also start a trial of losartan regarding both CHF and coronary artery disease. -Consider cardiology consult. 3. Neurologic. History of Parkinson's disease. Continue Sinemet and amantadine. -encouraged the patient to consider follow-up with a neurology specialist at least once a year. -PT and OT evaluations. Swallow eval. #4. Infectious disease. Patient has had a recent upper respiratory infection. It appears he may have bronchitis, which may be stressing his heart more. Cover with empiric Rocephin and Zithromax. 5. CODE STATUS: Full. 6. DVT prophylaxis: Lovenox. 7. History of depression and anxiety. Continue Celexa, as needed Ativan. Addendum: This evening, the patient decided to walk to the bathroom without wetting his nurse no. On his way out, he reached for his walker, and missed. He fell forward, and landed with his left shoulder striking the chair. He was a little sore all over, but denied any specific injuries. We later moved him into the ICU, for closer monitoring, and reminded him that he should not get out of bed without asking for help. Medical - PN: Qual - VTE Deep Vein Thrombosis/Pulmonary Embolism Present on Admission: Yes
[2017-04-21] MEDS ORDERED: ATORVASTATIN 20 MG TABLET PO ONE (10:26)
--- NOTE | 2017-04-21 13:27 | XRay Report ---
CLINICAL INFORMATION: Follow up CHF COMPARISON: 04/20/2017. FINDINGS: Heart has decreased in size now mild/moderately enlarged. Moderate hiatal hernia again noted. Mediastinum is normal. The pulmonary vessels have returned to near normal in caliber and interstitial edema has resolved. There is minor atelectasis in the left base. No effusion IMPRESSION: Interval resolution of CHF. Moderate hiatal hernia - stable Interpreted and Authenticated by: Subhash Peter 04/21/17
[2017-04-21] MEDS: WARFARIN 5 MG TABLET PO SCH (13:38)
[2017-04-21] MEDS: LOSARTAN 25 MG TABLET PO SCH (13:38)
[2017-04-21] MEDS: FUROSEMIDE 20 MG TABLET PO SCH (17:28)
[2017-04-21] MEDS: ACETAMINOPHEN 325 MG TABLET PO PRN (19:59)
[2017-04-22] MEDS: ACETAMINOPHEN 325 MG TABLET PO PRN ×3 (04:20→19:38)
[2017-04-22 07:10] LABS: Basophils # (Auto) 0.1 K/mcL (0.0-0.3); Basophils % (Auto) 0.9 % (0.0-2.0); Eosinophils # (Auto) 0.2 K/mcL (0.0-0.7); Eosinophils % (Auto) 1.9 % (0.0-7.0); Granulocytes % (Auto) 67.3 % (38.0-78.0); Lymphocytes # (Auto) 1.8 K/mcL (1.5-4.8); Lymphocytes % (Auto) 19.2 % (15.5-49.0); Mean Cell Volume 88.7 fL (80.0-100.0); Mean Corpuscular HGB Conc 33.9 g/dL (31.0-36.0); Mean Corpuscular Hemoglobin 30.1 pg (26.0-34.0); Monocytes % (Auto) 10.7 % (1.0-12.0); Platelet Count 183 K/mcL (140-440); RBC 4.13 M/mcL (4.50-5.90); Red Cell Distribution Width 13.7 % (11.5-14.5)
[2017-04-22 07:19] LABS: ALT/SGPT < 5 U/l (0-40); Albumin 3.6 gm/dL (3.2-5.2); Albumin/Globulin Ratio 1.2 (1.0-2.3); Alkaline Phosphatase 67 U/L (39-117); Bilirubin,Direct < 0.2 mg/dL (0.0-0.3); Blood Urea Nitrogen 26 mg/dl (8-23); Gamma Glutamyl Transpeptidase 16 U/L (8-61); Magnesium 2.2 mg/dL (1.6-2.5)
--- NOTE | 2017-04-22 08:30 | XRay Report ---
CLINICAL INFORMATION: Trauma COMPARISON: None. FINDINGS: No fracture or other osseous abnormality identified. Moderate acromioclavicular degenerative change noted. Glenohumeral joint is not well visualized, but appears grossly normal. Soft tissues normal IMPRESSION: No evidence of fracture Interpreted and Authenticated by: Subhash Peter 04/22/17
--- NOTE | 2017-04-22 08:32 | XRay Report ---
CLINICAL INFORMATION: Follow up CHF COMPARISON: 04/21/2017 FINDINGS: Moderate cardiomegaly is unchanged. Moderate hiatal hernia is vaguely seen. Mediastinum and pulmonary vasculature are unremarkable. Minor bibasilar atelectasis is unchanged IMPRESSION: Moderate stable cardiomegaly and minor bibasilar atelectasis. No plain film evidence of recurrent CHF or pneumonia Interpreted and Authenticated by: Subhash Peter 04/22/17
[2017-04-22] MEDS: ASPIRIN 81 MG TAB.CHEW PO SCH (08:56)
[2017-04-22] MEDS: MULTIVIT,THER IRON,CA,FA & MIN 1 TABLET PO SCH (08:56)
[2017-04-22] MEDS: FUROSEMIDE 20 MG TABLET PO SCH ×2 (08:56→16:06)
[2017-04-22] MEDS: FAMOTIDINE 20 MG TABLET PO SCH ×2 (08:56→20:27)
[2017-04-22] MEDS: ENOXAPARIN 100 MG/ML SYRINGE SQ SCH ×2 (08:56→20:28)
[2017-04-22] MEDS: LOSARTAN 25 MG TABLET PO SCH (08:56)
[2017-04-22] MEDS: DOCUSATE SODIUM 100 MG CAPSULE PO SCH ×2 (08:56→20:27)
[2017-04-22] MEDS: VITAMIN B COMPLEX 1 CAPSULE PO SCH (08:56)
[2017-04-22] MEDS: CARVEDILOL 3.125 MG TABLET PO SCH ×2 (08:57→19:38)
[2017-04-22] MEDS: CITALOPRAM 20 MG TABLET PO SCH (08:57)
[2017-04-22] MEDS: CARBIDOPA/LEVODOPA 25/100 TABLET PO SCH ×3 (08:57→20:29)
[2017-04-22] MEDS: AMANTADINE HCL 50 MG PO SCH ×2 (08:58→20:28)
--- NOTE | 2017-04-22 11:19 | XRay Report ---
CLINICAL INFORMATION: Shoulder pain COMPARISON: None. FINDINGS: There is oblique fracture through the medial clavicle. The clavicle head appears to retain articulation with the manubrium, but the remaining clavicle is displaced one shaft width inferiorly and posteriorly. The head appears moderately demineralized and may be eroded. Moderate degenerative changes noted acromioclavicular joint. Glenohumeral joint is unremarkable. IMPRESSION: Moderately displaced, obliquely oriented fracture of the medial clavicle. Interpreted and Authenticated by: Subhash Pteer 04/22/17
--- NOTE | 2017-04-22 11:23 | Internal Med Progress Note ---
Medical - PN: Subj Patient information: Note initiated : 04/22/17 at 11:23 am Patient: Geoffrey Purdy 76 y/o M admitted on 04/20/17 for SOB x 1 Hour/ Pulmonary Emboli. Interval history: April 20, 2017: History of present illness: Mr. Purdy is a 76 year old man who presents today complaining of left-sided chest discomfort since this morning. He apparently saw his primary care physician about 1 week ago complaining of cough and shortness of breath, and was treated for bronchitis with antibiotics, which he took, and an inhaler, which he did not. He also went back to see his primary care physician yesterday , complaining of continued chest congestion. They told him to complete the amoxicillin, and use the inhaler as needed. He notes that he has been sitting around quite a bit over the last week, as he is just been quite fatigued. 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 This morning he was resting in his recliner, and says he awakened with pain process chest that extended down into both arms. He says sometimes he will have that sensation when he is feeling anxious, so he did not worry but thought it would pass, it did not pass after several minutes, so he did call 911. He says a week ago he was coughing up thick chunks of sputum, and now his sputum seems clear. He is noticing more shortness of breath, particularly more dyspnea with exertion over the last week. He is not aware of fever or chills, headaches or dizziness, new eye or ear symptoms, sore throat. He denies palpitations. He denies abdominal pain, nausea or vomiting, diarrhea or constipation, dysuria. His notes that they have been cleaning out the patient's parents house, and he opened a refrigerator that had been open for a couple of years, and there was a great stench that came out of the air. She wonders if that could have affected his lungs. In the emergency room today, he had a positive d-dimer. He subsequently underwent CT of the chest which did show pulmonary emboli. Workup was also suggestive of heart failure and new onset atrial fibrillation. The patient generally does not get flu shots, as he does not like to take any sort of medicine. His chart indicates he did have a Pneumovax in April 2016. April 21: -Today, the patient says his breathing is much easier. He also has less cough. He has not had any further chest pain. He denies palpitations. He did diurese over 2 L overnight. -Weighted heart rate was controlled with IV Lopressor. Coreg was started this morning. -Initial troponins were elevated, but are trending downward this morning. His EKG did not show any acute changes. Echocardiogram shows severe left ventricular global hypokinesis with reduced ejection fraction. CT scan from yesterday also showed significant plaques in all of his coronary arteries. -Overnight he did have heart rates up into the 130s. He also was feeling quite anxious. He received oral and then IV Ativan, and eventually felt more relaxed. The patient is on therapeutic dose Lovenox, and has also started Coumadin. Otherwise, he denies fever or chills. He reports his cough has decreased significantly. He denies chest pain or palpitations, and has much less shortness of breath. He denies abdominal pain, nausea or vomiting, diarrhea or constipation or dysuria. April 22: -Last night, the patient tried to get out of bed unassisted, and fell. He struck his left shoulder on a chair. During the evening, he got up with assistance to use a bedside commode, and became acutely diaphoretic and lightheaded. He reported significant left shoulder pain at that time. This was thought to be a vasovagal reaction. He has done okay since getting back to bed. This morning, he continues to complain of pain in the left shoulder with any movement. Shoulder x-rays this morning looked okay, but chest x-ray actually showed probable clavicle fracture. Follow-up clavicle films do confirm a fracture. -Echocardiogram showed significant systolic and diastolic CHF. Patient is being started on low doses of losartan, Lasix, Coreg, Lipitor.. He seems to be tolerating those relatively well at this time. Chest CT also showed severe coronary artery calcification. -Heart rates have been relatively well controlled with Coreg, and as needed IV Lopressor. -Patient is fully anticoagulated with Lovenox for his bilateral pulmonary emboli. He has been tolerating that. He thinks he did hit his head when he fell last night, but did not appear to have any neurologic symptoms. -He does have Parkinson's disease, and definitely has a Parkinson's gait. He is does report that this morning when he first woke up he felt like he was seeing the room sideways. He said that lasted an hour or 2, and then resolved. He is wondering if that is a medication side effect. Otherwise, today, the patient denies fever or chills, chest pain or palpitations. He thinks his shortness of breath is mostly resolved. He still has a bit of a cough. Chest x-ray does not suggest pneumonia. He denies GI or symptoms. - Constitutional Vitals: Vital Signs Temp Pulse Resp BP Pulse Ox 99.2 F H 87 18 135/75 95 04/22/17 08:00 04/22/17 08:00 04/22/17 08:00 04/22/17 08:00 04/22/17 08:00 Period Temp Pulse Resp BP Sys/Brown Pulse Ox Last 24 Hr 97.0 F-99.2 F 70-87 18-22 94-135/61-84 90-98 Intake and Output 04/21/17 04/22/17 04/22/17 21:59 05:59 13:59 Intake Total 600 / 600 360 / 360 Output Total 450 / 450 Balance 150 / 150 360 / 360 Weight 244 lb 4.8 oz Intake & Output: Intake & Output 04/21/17 04/22/17 04/22/17 21:59 05:59 13:59 Intake Total 600 / 600 360 / 360 Output Total 450 / 450 Balance 150 / 150 360 / 360 Weight 244 lb 4.8 oz Intake: Oral 600 / 600 360 / 360 Output: Void Amount 450 / 450 Other: Meal Breakfast Percent of Meal Consumed 100% # Voids 1 On exam, he is awake and alert. T-max is 99.2, heart rates ranging from 70s-80s currently. Blood pressure 135/ 75. O2 saturation 95% on room air Neck shows no obvious lymphadenopathy or JVD. Cardiac exam shows an irregularly irregular rhythm Lungs: Continue to show a few crackles mainly at the bases, but are clear above. Abdomen is soft and nontender. Extremities: He still has about 2+ pitting edema to about mid caldera. Examination of the left clavicular area now shows some swelling and tenderness over the medial clavicle. Neurologic: Patient has a Parkinson's masked bases, and some psychomotor retardation. Medical - PN: Obj Da - Labs CBC & Chem 7: 04/22/17 04:00 04/22/17 04:00 Labs: Abnormal Lab Results 04/22/17 04/22/17 04/22/17 04:00 04:00 04:00 RBC 4.13 L Hgb 12.4 L Hct 36.7 L Pratt # (Auto) 1.0 H PT 15.4 H INR 1.2 H D-Dimer Carbon Dioxide Anion Gap BUN 26 H Creatinine Glucose Troponin T NT-Pro-B Natriuret Pep 04/21/17 04/21/17 04/20/17 04:42 04:40 19:28 RBC Hgb Hct Pratt # (Auto) PT INR D-Dimer Carbon Dioxide 21 L Anion Gap 21.0 H BUN Creatinine 1.3 H Glucose Troponin T 0.05 H* 0.09 H* NT-Pro-B Natriuret Pep 04/20/17 04/20/17 04/20/17 14:27 08:23 08:23 RBC Hgb Hct Pratt # (Auto) PT INR D-Dimer 2.42 H Carbon Dioxide Anion Gap BUN Creatinine Glucose 108 H Troponin T 0.08 H* NT-Pro-B Natriuret Pep 1170.0 H 04/20/17 08:23 RBC Hgb Hct 39.6 L Pratt # (Auto) PT INR D-Dimer Carbon Dioxide Anion Gap BUN Creatinine Glucose Troponin T NT-Pro-B Natriuret Pep April 22: Chest x-ray shows stable cardiomegaly, minor bibasilar atelectasis. No obvious CHF or pneumonia. Clavicle x-ray: Shows moderately displaced obliquely oriented medial clavicle fracture. Shoulder series: Shows no obvious shoulder fracture. April 21: Chest x-ray: Shows interval resolution of CHF. EK:08 AM: Atrial fibrillation at a rate of 92, with just a hint of ST sagging in leads V4 through V6. No significant change from yesterday's EKG. Troponin this morning has dropped to 0.05 Blood cultures are negative so far. Echocardiogram: Shows moderate global hypokinesis of the left ventricle, with reduced systolic function, ejection fraction 36%. There is also evidence of grade 2 diastolic dysfunction. Left ventricle is mildly dilated, and there is borderline LVH. Left atrium is moderate to severely dilated. Moderate posterior mitral annular calcification. Calcified mitral valve chordae. Borderline pulmonary hypertension. Aortic root sclerosis. April 20: EK PM: Sinus rhythm with wandering atrial pacemaker. Left axis deviation. No significant change from April 20 earlier in the day. EK:52 AM: Atrial fibrillation at a rate of 119, left axis deviation, no acute appearing ST-T changes. D-dimer is elevated at 2.42 PT is 13 with INR of 1.0 Lactic acid is normal at 1.0 Initial troponin is normal at less than 0.01. Troponin #2 is elevated at 0.08. ProBNP is elevated at 1170. Next Urinalysis is essentially normal. Echocardiogram: Was done, with results pending. CT angiogram: Small emboli are seen within the segmental and subsegmental pulmonary arteries to the anterior segment of the right upper lobe and medial posterior basilar segmental right lower lobe. Mild enlargement of central pulmonary arteries suggest pulmonary hypertension. Mild underlying CHF. Heavy and chronic plaque throughout all coronary arteries. Moderate underlying chronic bronchitis, with bronchiectasis noted in the medial basilar segment of the left lower lobe. Moderate hiatal hernia. Chest x-ray: Shows moderate cardiomegaly. Mild pulmonary vascular congestion, consistent with CHF. Mild bibasilar atelectasis. Meds: Medications Acetaminophen (Tylenol) 650 mg PO Q6HP PRN PRN Reason: PAIN/FEVER > 101 Last Admin: 04/22/17 04:20 Dose: 650 mg Albuterol Sulfate (Ventolin) 2.5 mg NEB Q4HRT PRN PRN Reason: Shortness Of Breath Or Wheezing Aspirin (Aspirin) 81 mg PO DAILY [facility] Last Admin: 04/22/17 08:56 Dose: 81 mg Atorvastatin Calcium (Lipitor) 5 mg PO HS [facility] Carbidopa/Levodopa (Sinemet 25/100) 1 tab PO TID [facility] Last Admin: 04/22/17 08:57 Dose: 1 tab Carvedilol (Coreg) 3.125 mg PO BIDCC [facility] Last Admin: 04/22/17 08:57 Dose: 3.125 mg Citalopram Hydrobromide (Celexa) 10 mg PO DAILY [facility] Last Admin: 04/22/17 08:57 Dose: 10 mg Docusate Sodium (Colace) 100 mg PO BID [facility] Last Admin: 04/22/17 08:56 Dose: 100 mg Enoxaparin Sodium (Lovenox) 100 mg SQ BID [facility] Last Admin: 04/22/17 08:56 Dose: 100 mg Famotidine (Pepcid) 20 mg PO BID [facility] Last Admin: 04/22/17 08:56 Dose: 20 mg Furosemide (Lasix) 20 mg PO BIDD [facility] Last Admin: 04/22/17 08:56 Dose: 20 mg Iron Carb/Multivit/Datawarehouse Developer/Folic Acid (Multivitamin W/Minerals) 1 tab PO DAILY [facility] Last Admin: 04/22/17 08:56 Dose: 1 tab Lorazepam (Ativan) 0.25 mg PO Q6HP PRN PRN Reason: Anxiety Last Admin: 04/21/17 00:55 Dose: 0.25 mg Lorazepam (Ativan) 0.25 mg IV Q2-4HP PRN PRN Reason: ANXIETY/SEDATION Losartan Potassium (Cozaar) 25 mg PO DAILY [facility] Last Admin: 04/22/17 08:56 Dose: 25 mg Magnesium Hydroxide (Milk Of Magnesia) 30 ml PO DAILYP PRN PRN Reason: Constipation Metoprolol Tartrate (Lopressor) 5 mg IV Q4HP PRN PRN Reason: Tachyarrhythmias Last Admin: 04/21/17 08:14 Dose: 5 mg Morphine Sulfate (Morphine) 2 mg IV Q2H PRN PRN Reason: Chest Pain Naloxone HCl (Narcan) 0.1 mg IV Q2MIN PRN PRN Reason: Opiate Reversal Ondansetron HCl (Zofran) 4 mg IV Q4HP PRN PRN Reason: Nausea And Vomiting Amantadine Hcl 50 Mg (Tab) 1 dose PO BID [facility] Last Admin: 04/22/17 08:58 Dose: 1 dose Vitamin B Complex (Vitamin B Complex) 1 cap PO DAILY [facility] Last Admin: 04/22/17 08:56 Dose: 1 cap Warfarin Sodium (Coumadin Per Pharmacy) 1 order PO [facility] Warfarin Sodium (Coumadin) 7.5 mg PO ONCE@1400 ONE Stop: 04/22/17 14:01 Medical - PN: A/P - Time Spent With Patient Total time spent is greater than 50% in coordination of care (as documented) at patient's floor/unit and/or counseling patient: Greater than 35 minutes (1) Elevated troponin I level Status: Acute Current Visit: Yes (2) Pulmonary emboli Status: Acute Current Visit: Yes (3) Atrial fibrillation Status: Acute Current Visit: Yes (4) CHF exacerbation Status: Acute Current Visit: Yes (5) Parkinson disease Status: Chronic Current Visit: No - Narrative A/P Narrative: #1. Pulmonary. Patient presents with chest pain and shortness of breath. CT scan is positive for pulmonary emboli. Signs and symptoms are also consistent with new onset A. fib and new onset CHF exacerbation. -Patient was loaded with Lovenox in the emergency room. Continue Lovenox until Coumadin is therapeutic. -Oxygen, albuterol nebulizer treatments, pulmonary toilet, cough meds as needed 2. Cardiac. Chest x-ray and CAT scan are suggestive of mild CHF exacerbation. -Patient diuresed well , and is clinically improved today. Oral Lasix started as well. Echocardiogram shows significant LV dysfunction. Started trial of Coreg and losartan. Continue oral Lasix. Atrial fibrillation. This appears to be a new finding. This may be in response to pulmonary emboli, or a separate process. -Patient is anticoagulated on Lovenox, and will be transitioned to Coumadin. Echocardiogram findings would suggest that A. fib will be more or less permanent , and he should consider long-term anticoagulation. Occult coronary artery disease/elevated troponin. -I suspect he had more cardiac strain issues related to the PE, then acute OH. Troponin is trending downward. There were no EKG changes. However, he has significant coronary plaques on CT scan, and should undergo follow-up cardiac evaluation, possibly with a clear stress test and/or an angiogram. -He is clearly at high risk, so I have started aspirin and Lipitor. -Since he has not tolerated lisinopril in the past, I will also start a trial of losartan regarding both CHF and coronary artery disease. -Consider cardiology consult. 3. Neurologic. History of Parkinson's disease. Continue Sinemet and amantadine. -encouraged the patient to consider follow-up with a neurology specialist at least once a year. -PT and OT evaluations. Swallow eval. #4. Infectious disease. Patient has had a recent upper respiratory infection. It appears he may have bronchitis, which may be stressing his heart more. Consider covering with empiric Rocephin and Zithromax. 5. CODE STATUS: Full. 6. DVT prophylaxis: Lovenox. 7. History of depression and anxiety. Continue Celexa, as needed Ativan. #8. Fall. Orthopedic. -The patient apparently fractured his left clavicle during his fall last night. I have asked Dr. Menchaca of orthopedics to evaluate him. PT and OT have also been requested. Medical - PN: Qual - VTE Deep Vein Thrombosis/Pulmonary Embolism Present on Admission: Yes
[2017-04-22] MEDS ORDERED: WARFARIN 7.5 MG TABLET PO ONE (14:00)
--- NOTE | 2017-04-22 16:03 | Cat Scan Report ---
CLINICAL INFORMATION: Fall CHF. History of pulmonary embolism. Also medial left clavicular fracture COMPARISON: Chest CT performed two days prior 04/20/2017 TECHNIQUE: 2.5 mm axial slices were obtained from the lung apices through the bases without intravenous contrast. Sagittal, coronal and axial reformatted images were processed and reviewed at bone, lung and soft tissue windows. 7 mm axial MIP images were also reconstructed. FINDINGS: Pulmonary parenchymal windows show very minimal groundglass airspace disease in a bandlike distribution in the posterior upper and lower lobes which suspect is merely atelectasis. There are scattered scarring in the peripheral lower lobes.. There are no effusions or evidence of pneumothorax. Mild underlying bronchitis changes are noted. Chronic cicitration bronchiectasis in the medial basilar segment left lower lobe seen - as before. Mediastinal windows show the heart is mildly enlarged with calcification in the coronary arteries. Central pulmonary arteries mildly enlarged - as previously seen. There is no adenopathy in the mediastinal hilar or axillary region. Moderate size hiatal hernia is noted Since the previous chest CT is two days ago, patient has sustained a severely comminuted fracture of the medial left clavicle. The clavicular head remains properly articulated in the sternoclavicular joint. The remaining clavicle is displaced 2 cm anteriorly. There is no evidence of erosive change to suggest a secondary pathologic process such as infection or malignancy. The remainder of the osseous structures including the ribs, scapula, proximal humeri and thoracic spine are normal without evidence of osteolytic foci IMPRESSION: 1. Chronic bronchitis changes with cicitration bronchiectasis in the medial basilar segment left lower lobe. 2. Interval resolution CHF 3. Moderate hiatal hernia 4. Severely comminuted fracture through the medial left clavicle which has occurred since the chest CT two days ago. It should merely represent a simple fracture: There is no evidence of erosion or lysis to suggest suggest underlying infectious or neoplastic infiltrative pathology. No other osseous abnormalities Interpreted and Authenticated by: Subhash Peter 04/22/17
[2017-04-22] MEDS: ATORVASTATIN 20 MG TABLET PO SCH (20:27)
[2017-04-23 06:19] LABS: ALT/SGPT < 5 U/l (0-40); Albumin 3.5 gm/dL (3.2-5.2); Albumin/Globulin Ratio 1.1 (1.0-2.3); Alkaline Phosphatase 71 U/L (39-117); Bilirubin,Direct < 0.2 mg/dL (0.0-0.3); Blood Urea Nitrogen 24 mg/dl (8-23); Gamma Glutamyl Transpeptidase 19 U/L (8-61); Uric Acid 6.8 mg/dL (2.5-8.0)
[2017-04-23 07:03] LABS: Basophils # (Auto) 0.1 K/mcL (0.0-0.3); Basophils % (Auto) 0.8 % (0.0-2.0); Eosinophils # (Auto) 0.3 K/mcL (0.0-0.7); Eosinophils % (Auto) 3.3 % (0.0-7.0); Granulocytes % (Auto) 64.8 % (38.0-78.0); Lymphocytes # (Auto) 1.6 K/mcL (1.5-4.8); Lymphocytes % (Auto) 19.4 % (15.5-49.0); Mean Cell Volume 86.2 fL (80.0-100.0); Mean Corpuscular HGB Conc 35.6 g/dL (31.0-36.0); Mean Corpuscular Hemoglobin 30.7 pg (26.0-34.0); Monocytes % (Auto) 11.7 % (1.0-12.0); Platelet Count 159 K/mcL (140-440); RBC 4.14 M/mcL (4.50-5.90); Red Cell Distribution Width 13.8 % (11.5-14.5)
[2017-04-23] MEDS: ACETAMINOPHEN 325 MG TABLET PO PRN ×2 (08:29→15:17)
[2017-04-23] MEDS: MULTIVIT,THER IRON,CA,FA & MIN 1 TABLET PO SCH (09:31)
[2017-04-23] MEDS: ENOXAPARIN 100 MG/ML SYRINGE SQ SCH ×2 (09:31→21:42)
[2017-04-23] MEDS: CITALOPRAM 20 MG TABLET PO SCH (09:31)
[2017-04-23] MEDS: DOCUSATE SODIUM 100 MG CAPSULE PO SCH ×2 (09:31→21:42)
[2017-04-23] MEDS: FAMOTIDINE 20 MG TABLET PO SCH ×2 (09:31→21:42)
[2017-04-23] MEDS: VITAMIN B COMPLEX 1 CAPSULE PO SCH (09:32)
[2017-04-23] MEDS: ASPIRIN 81 MG TAB.CHEW PO SCH (09:32)
[2017-04-23] MEDS: AMANTADINE HCL 50 MG PO SCH ×2 (09:32→15:08)
[2017-04-23] MEDS: CARVEDILOL 3.125 MG TABLET PO SCH (09:32)
[2017-04-23] MEDS: FUROSEMIDE 20 MG TABLET PO SCH ×2 (09:32→16:45)
[2017-04-23] MEDS: CARBIDOPA/LEVODOPA 25/100 TABLET PO SCH ×3 (09:32→21:41)
[2017-04-23] MEDS: LOSARTAN 25 MG TABLET PO SCH (09:40)
--- NOTE | 2017-04-23 10:15 | Orthopedic Progress Note ---
Orthopedics - Auxillary Note - Subjective Patient Information: Note initiated : 04/23/17 at 10:11 am Service Date, if different from initiated Date: [] Patient: Geoffrey Purdy 76 y/o M admitted on 04/20/17 for SOB x 1 Hour/ Pulmonary Emboli. Ortho consulted for clavicle fracture. I reviewed xrays and complete view of medial clavicle was difficult to view. I ordered a CT scan which shows a medial comminuted clavicle fracture with some displacement. However, the medial fragment is very small and does not appear that there would be any way to get good fixation in it with hardware. Medial clavicle fractures are usually treated nonoperatively and I think that is best with this fracture as well. He will just have to do limited movement until pain subsides, usually 3- 4 weeks. A sling or shoulder immobilizer can be used for comfort. I will do a formal consult later.
[2017-04-23] MEDS ORDERED: CARVEDILOL 3.125 MG TABLET PO ONE (10:47)
[2017-04-23] MEDS ORDERED: WARFARIN 7.5 MG TABLET PO ONE (14:00)
--- NOTE | 2017-04-23 15:57 | Consultation ---
DATE OF CONSULTATION: 04/23/2017 CHIEF COMPLAINT: Left shoulder and collarbone pain. HISTORY OF PRESENT ILLNESS: The patient was admitted approximately 3 days ago to the ICU with new onset pulmonary emboli as well as new onset atrial fibrillation. He was getting up to use the bathroom with his walker. He did set his walker aside momentarily, where he states he tripped over his sock. He also has a history of Parkinson's disease, which does not help his gait. He then fell onto his left shoulder and suffered a medial, comminuted, mildly displaced clavicle fracture. PAST MEDICAL HISTORY: Includes Parkinson's disease, constipation, depression, fatigue, lumbar spondylolysis and radiculopathy, depression and panic disorder with anxiety, congestive heart failure, anemia, obesity, hypogonadism, hyperlipidemia, stage II chronic kidney disease, and hypertension. MEDICATIONS: Dyazide 37.5-25 one tablet daily. Carbidopa/levodopa 25-100 one tablet four times daily. Vitamin D 5,000 units daily. Lorazepam 1 mg, one-quarter of a tablet 3 times a day as needed. Amantadine 100 mg, half a tablet by mouth twice daily. Aleve 220 mg twice daily as needed, rarely used. Fosinopril 10 mg, one-quarter tablet daily. Celexa 10 mg, one-half tablet daily. Amoxicillin 875 mg, one tablet twice daily. Ventolin inhaler 2 puffs four times a day as needed. Robitussin AC one teaspoon every 4 hours as needed. Tussionex 1 teaspoon twice daily as needed. Lasix 40 mg. ALLERGIES: He is allergic to GABAPENTIN and LISINOPRIL. FAMILY HISTORY: His father had coronary artery disease and a myocardial infarction. Mother of dementia and had a history of stroke. Brother had diabetes and coronary artery disease. SOCIAL HISTORY: The patient denies alcohol, tobacco and drugs. He is and lives with his . 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 MOST CURRENT VITAL SIGNS: Temperature is 97.1 degrees Fahrenheit, heart rate is 82, respiratory rate is 20, blood pressure is 101/70, pulse oximetry is 94. REVIEW OF SYSTEMS: Positive for shortness of breath. PHYSICAL EXAMINATION: GENERAL: Alert and oriented times 3. The patient does have mild tremor noted. LEFT UPPER EXTREMITY: He is tender to palpation over the clavicle, particularly the medial aspect. He does have some ecchymosis and swelling in the left elbow. 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 He does have some tenderness to palpation also over the posterior scapula. His active and passive range of motion of the shoulder is severely limited due to pain. RIGHT UPPER EXTREMITY: He has full active and passive range of motion of the shoulder, elbow, and wrist. It does cause some mild pain on the contralateral side. He has palpable radial pulses bilaterally, good capillary refill. IMAGING: X-rays and CT scan reviewed today do show medial, mildly displaced, comminuted clavicle fracture on the left side. No other fractures or dislocations noted at this time. IMPRESSION: Left medial displaced comminuted clavicle fracture. PLAN: The patient will continue with sling at this time. He will wear this night time babysitter. He may do some gentle active range of motion as tolerated by pain. He probably will not be able to do this for several weeks, however. He will follow up at [facility] in approximately 10-14 days for a recheck and updated x-rays. He will call us prior to that with any questions or concerns. LUIS ENRIQUE:divina Job ID: [id number] Doc ID: [id number] Torrey Kang PA-C
[2017-04-23] MEDS: CARVEDILOL 6.25 MG TABLET PO SCH (16:45)
[2017-04-23] MEDS: ATORVASTATIN 20 MG TABLET PO SCH (21:42)
--- NOTE | 2017-04-23 22:49 | Internal Med Progress Note ---
Medical - PN: Subj Patient information: Note initiated : 04/23/17 at 10:44 pm Service Date, if different from initiated Date: [] Patient: Geoffrey Purdy 76 y/o M admitted on 04/20/17 for SOB x 1 Hour/ Pulmonary Emboli. Chief Complaint: f/u CHF Interval history: April 20, 2017: History of present illness: Mr. Purdy is a 76 year old man who presents today complaining of left-sided chest discomfort since this morning. He apparently saw his primary care physician about 1 week ago complaining of cough and shortness of breath, and was treated for bronchitis with antibiotics, which he took, and an inhaler, which he did not. He also went back to see his primary care physician yesterday , complaining of continued chest congestion. They told him to complete the amoxicillin, and use the inhaler as needed. He notes that he has been sitting around quite a bit over the last week, as he is just been quite fatigued. 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 This morning he was resting in his recliner, and says he awakened with pain process chest that extended down into both arms. He says sometimes he will have that sensation when he is feeling anxious, so he did not worry but thought it would pass, it did not pass after several minutes, so he did call 911. He says a week ago he was coughing up thick chunks of sputum, and now his sputum seems clear. He is noticing more shortness of breath, particularly more dyspnea with exertion over the last week. He is not aware of fever or chills, headaches or dizziness, new eye or ear symptoms, sore throat. He denies palpitations. He denies abdominal pain, nausea or vomiting, diarrhea or constipation, dysuria. His notes that they have been cleaning out the patient's parents house, and he opened a refrigerator that had been open for a couple of years, and there was a great stench that came out of the air. She wonders if that could have affected his lungs. In the emergency room today, he had a positive d-dimer. He subsequently underwent CT of the chest which did show pulmonary emboli. Workup was also suggestive of heart failure and new onset atrial fibrillation. The patient generally does not get flu shots, as he does not like to take any sort of medicine. His chart indicates he did have a Pneumovax in April 2016. April 21: -Today, the patient says his breathing is much easier. He also has less cough. He has not had any further chest pain. He denies palpitations. He did diurese over 2 L overnight. -Weighted heart rate was controlled with IV Lopressor. Coreg was started this morning. -Initial troponins were elevated, but are trending downward this morning. His EKG did not show any acute changes. Echocardiogram shows severe left ventricular global hypokinesis with reduced ejection fraction. CT scan from yesterday also showed significant plaques in all of his coronary arteries. -Overnight he did have heart rates up into the 130s. He also was feeling quite anxious. He received oral and then IV Ativan, and eventually felt more relaxed. The patient is on therapeutic dose Lovenox, and has also started Coumadin. Otherwise, he denies fever or chills. He reports his cough has decreased significantly. He denies chest pain or palpitations, and has much less shortness of breath. He denies abdominal pain, nausea or vomiting, diarrhea or constipation or dysuria. April 22: -Last night, the patient tried to get out of bed unassisted, and fell. He struck his left shoulder on a chair. During the evening, he got up with assistance to use a bedside commode, and became acutely diaphoretic and lightheaded. He reported significant left shoulder pain at that time. This was thought to be a vasovagal reaction. He has done okay since getting back to bed. This morning, he continues to complain of pain in the left shoulder with any movement. Shoulder x-rays this morning looked okay, but chest x-ray actually showed probable clavicle fracture. Follow-up clavicle films do confirm a fracture. -Echocardiogram showed significant systolic and diastolic CHF. Patient is being started on low doses of losartan, Lasix, Coreg, Lipitor.. He seems to be tolerating those relatively well at this time. Chest CT also showed severe coronary artery calcification. -Heart rates have been relatively well controlled with Coreg, and as needed IV Lopressor. -Patient is fully anticoagulated with Lovenox for his bilateral pulmonary emboli. He has been tolerating that. He thinks he did hit his head when he fell last night, but did not appear to have any neurologic symptoms. -He does have Parkinson's disease, and definitely has a Parkinson's gait. He is does report that this morning when he first woke up he felt like he was seeing the room sideways. He said that lasted an hour or 2, and then resolved. He is wondering if that is a medication side effect. Otherwise, today, the patient denies fever or chills, chest pain or palpitations. He thinks his shortness of breath is mostly resolved. He still has a bit of a cough. Chest x-ray does not suggest pneumonia. He denies GI or symptoms. April 23: Still reports some dyspnea this morning. Does have clavicle pain from his fracture. No cough or sputum production. Formal echocardiogram report reviewed , ejection fraction is moderately reduced, calculated EF of 36%, moderate global hypokinesis of the left ventricle. The left atrium is moderately to severely dilated. Still having bouts of tachycardia in the 140s, mostly related to anxiety, generally resolve within 60 seconds. Discussed anticoagulation with the patient, risks and benefits of Lovenox bridging to warfarin versus using the Xarelto or Eliquis. He preferred to continue with warfarin. - Constitutional Vitals: Vital Signs Temp Pulse Resp BP Pulse Ox 97.8 F 68 16 118/71 98 04/23/17 21:44 04/23/17 16:00 04/23/17 21:44 04/23/17 21:44 04/23/17 21:44 Period Temp Pulse Resp BP Sys/Brown Pulse Ox Last 24 Hr 97.0 F-98.4 F 68-83 16-20 101-132/48-95 94-98 Intake and Output 04/23/17 04/23/17 04/24/17 13:59 21:59 05:59 Intake Total 280 / 280 300 / 300 Output Total 500 / 500 350 / 350 450 / 450 Balance -500 / -500 -70 / -70 -150 / -150 Intake & Output: Intake & Output 04/23/17 04/23/17 04/24/17 13:59 21:59 05:59 Intake Total 280 / 280 300 / 300 Output Total 500 / 500 350 / 350 450 / 450 Balance -500 / -500 -70 / -70 -150 / -150 Intake: Oral 280 / 280 300 / 300 Output: Void Amount 500 / 500 350 / 350 450 / 450 Other: Meal Breakfast Lunch Percent of Meal Consumed 100% 100% - Additional findings Additional findings: General: Sitting up in chair in no acute distress Chest: Few right basilar rales. Cardiovascular: Irregularly irregular, 1+ lower extremity edema Abdomen: Soft, nontender Musculoskeletal: Medial left clavicular tenderness with mild ecchymoses Neuro: Voice is soft, resting tremor, bradykinesia. Medical - PN: Obj Da - Labs CBC & Chem 7: 04/23/17 03:53 04/23/17 03:53 Labs: Abnormal Lab Results 04/23/17 04/23/17 04/23/17 03:53 03:53 03:53 RBC 4.14 L Hgb 12.7 L Hct 35.7 L Bartholomew # (Auto) 1.0 H PT 16.4 H INR 1.3 H Carbon Dioxide Anion Gap BUN 24 H Creatinine Troponin T 04/22/17 04/22/17 04/22/17 04:00 04:00 04:00 RBC 4.13 L Hgb 12.4 L Hct 36.7 L Bartholomew # (Auto) 1.0 H PT 15.4 H INR 1.2 H Carbon Dioxide Anion Gap BUN 26 H Creatinine Troponin T 04/21/17 04/21/17 04:42 04:40 RBC Hgb Hct Bartholomew # (Auto) PT INR Carbon Dioxide 21 L Anion Gap 21.0 H BUN Creatinine 1.3 H Troponin T 0.05 H* Meds: Medications Acetaminophen (Tylenol) 650 mg PO Q6HP PRN PRN Reason: PAIN/FEVER > 101 Last Admin: 04/23/17 15:17 Dose: 650 mg Albuterol Sulfate (Ventolin) 2.5 mg NEB Q4HRT PRN PRN Reason: Shortness Of Breath Or Wheezing Aspirin (Aspirin) 81 mg PO DAILY [facility] Last Admin: 04/23/17 09:32 Dose: 81 mg Atorvastatin Calcium (Lipitor) 5 mg PO HS [facility] Last Admin: 04/23/17 21:42 Dose: 5 mg Carbidopa/Levodopa (Sinemet 25/100) 1 tab PO TID [facility] Last Admin: 04/23/17 21:41 Dose: 1 tab Carvedilol (Coreg) 6.25 mg PO BIDCC [facility] Last Admin: 04/23/17 16:45 Dose: 6.25 mg Citalopram Hydrobromide (Celexa) 10 mg PO DAILY [facility] Last Admin: 04/23/17 09:31 Dose: 10 mg Docusate Sodium (Colace) 100 mg PO BID [facility] Last Admin: 04/23/17 21:42 Dose: 100 mg Enoxaparin Sodium (Lovenox) 100 mg SQ BID [facility] Last Admin: 04/23/17 21:42 Dose: 100 mg Famotidine (Pepcid) 20 mg PO BID [facility] Last Admin: 04/23/17 21:42 Dose: 20 mg Furosemide (Lasix) 40 mg PO BIDD [facility] Last Admin: 04/23/17 16:45 Dose: 40 mg Iron Carb/Multivit/Addison/Folic Acid (Multivitamin W/Minerals) 1 tab PO DAILY [facility] Last Admin: 04/23/17 09:31 Dose: 1 tab Lorazepam (Ativan) 0.25 mg PO Q6HP PRN PRN Reason: Anxiety Last Admin: 04/21/17 00:55 Dose: 0.25 mg Lorazepam (Ativan) 0.25 mg IV Q2-4HP PRN PRN Reason: ANXIETY/SEDATION Losartan Potassium (Cozaar) 25 mg PO DAILY [facility] Last Admin: 04/23/17 09:40 Dose: 25 mg Magnesium Hydroxide (Milk Of Magnesia) 30 ml PO DAILYP PRN PRN Reason: Constipation Metoprolol Tartrate (Lopressor) 5 mg IV Q4HP PRN PRN Reason: Tachyarrhythmias Last Admin: 04/21/17 08:14 Dose: 5 mg Morphine Sulfate (Morphine) 2 mg IV Q2H PRN PRN Reason: Chest Pain Naloxone HCl (Narcan) 0.1 mg IV Q2MIN PRN PRN Reason: Opiate Reversal Ondansetron HCl (Zofran) 4 mg IV Q4HP PRN PRN Reason: Nausea And Vomiting Amantadine Hcl 50 Mg (Tab) 1 dose PO BID@0900,1500 [facility] Last Admin: 04/23/17 15:08 Dose: 1 dose Vitamin B Complex (Vitamin B Complex) 1 cap PO DAILY [facility] Last Admin: 04/23/17 09:32 Dose: 1 cap Warfarin Sodium (Coumadin Per Pharmacy) 1 order PO [facility] - Impressions Echocardiogram, formal report from 04/20/2017, Impression: Left ventricle is moderately dilated. There is borderline concentric left ventricular hypertrophy. Left ventricular systolic function is moderately reduced (EF 36% noted in body of report). There is moderate global hypokinesis of the left ventricle. The left atrium is moderate to severely dilated. There is moderate posterior mitral annular calcification. The mitral valve chordae are thickened and/or calcified. Doppler findings suggest borderline pulmonary hypertension. There is aortic root sclerosis/calcification. Medical - PN: A/P - Time Spent With Patient Total time spent is greater than 50% in coordination of care (as documented) at patient's floor/unit and/or counseling patient: Greater than 35 minutes - Narrative A/P Narrative: 1. Pulmonary. Patient presents with chest pain and shortness of breath. CT scan is positive for pulmonary emboli. Also has new onset atrial fibrillation and CHF exacerbation. -Patient was loaded with Lovenox in the emergency room. Continue Lovenox until Coumadin is therapeutic. We'll require 5 days of heparins prior to stopping, as well as an INR greater than 2 for 2 days in a row. -Oxygen, albuterol nebulizer treatments, pulmonary toilet, cough meds as needed 2. Cardiac. Chest x-ray and CT scan are suggestive of CHF exacerbation. Acute on chronic LV systolic heart failure. -Echocardiogram reported to show significant LV dysfunction, though when reviewing report on Tuesday, noted only moderately reduced LVEF at 36% (Had been 45-50% 08/07/2015). -Tolerating Coreg and losartan. Continue oral Lasix. Titrate up dose of carvedilol to help with rate control. Atrial fibrillation. New diagnosis, may be in response to pulmonary emboli, or a separate process. -Patient is anticoagulated on Lovenox, and will be transitioned to Coumadin. Echocardiogram findings would suggest that A. fib will be more or less permanent , and he should consider long-term anticoagulation. Discussed on Tuesday again. Occult coronary artery disease/elevated troponin-peaked at 0.09. -Suspect type II event with demand/perfusion mismatch due to RVR and PE. No EKG changes. Troponin is trending downward. Has significant coronary plaques on CT scan, and should undergo follow-up cardiac evaluation, possibly with a clear stress test and/or an angiogram. -He is at high risk, so started aspirin and Lipitor. Clinic notes from PCP indicate prior hesitancy to use statins. -Since he has not tolerated lisinopril in the past, started on losartan regarding both CHF and coronary artery disease. 3. Neurologic. History of Parkinson's disease. Continue Sinemet and amantadine. -encouraged the patient to consider follow-up with a neurology specialist at least once a year. -PT and OT evaluations. Swallow eval. 4. Infectious disease. Patient has had a recent upper respiratory infection. It appears he may have bronchitis, which may be stressing his heart more, though looks comfortable Tuesday morning. 5. CODE STATUS: Full. 6. DVT prophylaxis: Lovenox. 7. History of depression and anxiety. Continue Celexa, as needed Ativan. 8. Fall. Orthopedic. -The patient fractured his left clavicle during fall night. Dr. Menchaca of orthopedics has seen him. PT and OT have also been requested. Medical - PN: Qual - VTE Deep Vein Thrombosis/Pulmonary Embolism Present on Admission: Yes
[2017-04-24] MEDS: LORazepam 1 MG TABLET PO PRN ×2 (01:58→20:57)
[2017-04-24] MEDS: ACETAMINOPHEN 325 MG TABLET PO PRN ×2 (05:18→16:39)
[2017-04-24 06:13] LABS: Basophils # (Auto) 0 K/mcL (0.0-0.3); Basophils % (Auto) 0.6 % (0.0-2.0); Eosinophils # (Auto) 0.2 K/mcL (0.0-0.7); Eosinophils % (Auto) 3.2 % (0.0-7.0); Granulocytes % (Auto) 62.3 % (38.0-78.0); Lymphocytes # (Auto) 1.7 K/mcL (1.5-4.8); Lymphocytes % (Auto) 22.7 % (15.5-49.0); Mean Cell Volume 87.8 fL (80.0-100.0); Mean Corpuscular HGB Conc 34.6 g/dL (31.0-36.0); Mean Corpuscular Hemoglobin 30.4 pg (26.0-34.0); Monocytes # (Auto) 0.8 K/mcL (0.1-0.9); Monocytes % (Auto) 11.2 % (1.0-12.0); Platelet Count 179 K/mcL (140-440); RBC 4.15 M/mcL (4.50-5.90); Red Cell Distribution Width 13.8 % (11.5-14.5)
[2017-04-24 06:25] LABS: ALT/SGPT 8 U/l (0-40); Albumin 3.5 gm/dL (3.2-5.2); Albumin/Globulin Ratio 1.2 (1.0-2.3); Alkaline Phosphatase 70 U/L (39-117); Bilirubin,Direct < 0.2 mg/dL (0.0-0.3); Blood Urea Nitrogen 24 mg/dl (8-23); Gamma Glutamyl Transpeptidase 21 U/L (8-61)
[2017-04-24] MEDS: CARBIDOPA/LEVODOPA 25/100 TABLET PO SCH ×3 (08:13→20:58)
[2017-04-24] MEDS: FAMOTIDINE 20 MG TABLET PO SCH ×2 (08:13→20:57)
[2017-04-24] MEDS: ENOXAPARIN 100 MG/ML SYRINGE SQ SCH ×2 (08:13→20:56)
[2017-04-24] MEDS: VITAMIN B COMPLEX 1 CAPSULE PO SCH (08:14)
[2017-04-24] MEDS: CARVEDILOL 6.25 MG TABLET PO SCH ×2 (08:14→16:38)
[2017-04-24] MEDS: FUROSEMIDE 20 MG TABLET PO SCH ×2 (08:14→16:38)
[2017-04-24] MEDS: CITALOPRAM 20 MG TABLET PO SCH (08:14)
[2017-04-24] MEDS: ASPIRIN 81 MG TAB.CHEW PO SCH (08:14)
[2017-04-24] MEDS: LOSARTAN 25 MG TABLET PO SCH (08:15)
[2017-04-24] MEDS: MULTIVIT,THER IRON,CA,FA & MIN 1 TABLET PO SCH (08:15)
[2017-04-24] MEDS: DOCUSATE SODIUM 100 MG CAPSULE PO SCH ×2 (08:15→20:56)
[2017-04-24] MEDS: AMANTADINE HCL 50 MG PO SCH ×2 (08:16→15:23)
--- NOTE | 2017-04-24 11:43 | Orthopedic Progress Note ---
Orthopedics - Auxillary Note - Subjective Patient Information: Note initiated : 04/24/17 at 11:42 am Service Date, if different from initiated Date: [] Patient: Geoffrey Purdy 76 y/o M admitted on 04/20/17 for SOB x 1 Hour/ Pulmonary Emboli. Chief Complaint: Left shoulder/clavicle pain nvi-distal S/p L clavicle fx-stable continue with sling. may do gentle elbow ROM f/u at [facility] 10-14 days
[2017-04-24] MEDS ORDERED: WARFARIN 7.5 MG TABLET PO ONE (14:00)
--- NOTE | 2017-04-24 18:38 | Internal Med Progress Note ---
Medical - PN: Subj Patient information: Note initiated : 04/24/17 at 6:36 pm Service Date, if different from initiated Date: [] Patient: Geoffrey Purdy 76 y/o M admitted on 04/20/17 for SOB x 1 Hour/ Pulmonary Emboli. Chief Complaint: f/u PE, CHF Interval history: April 20, 2017: History of present illness: Mr. Purdy is a 76 year old man who presents today complaining of left-sided chest discomfort since this morning. He apparently saw his primary care physician about 1 week ago complaining of cough and shortness of breath, and was treated for bronchitis with antibiotics, which he took, and an inhaler, which he did not. He also went back to see his primary care physician yesterday , complaining of continued chest congestion. They told him to complete the amoxicillin, and use the inhaler as needed. He notes that he has been sitting around quite a bit over the last week, as he is just been quite fatigued. 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 This morning he was resting in his recliner, and says he awakened with pain process chest that extended down into both arms. He says sometimes he will have that sensation when he is feeling anxious, so he did not worry but thought it would pass, it did not pass after several minutes, so he did call 911. He says a week ago he was coughing up thick chunks of sputum, and now his sputum seems clear. He is noticing more shortness of breath, particularly more dyspnea with exertion over the last week. He is not aware of fever or chills, headaches or dizziness, new eye or ear symptoms, sore throat. He denies palpitations. He denies abdominal pain, nausea or vomiting, diarrhea or constipation, dysuria. His notes that they have been cleaning out the patient's parents house, and he opened a refrigerator that had been open for a couple of years, and there was a great stench that came out of the air. She wonders if that could have affected his lungs. In the emergency room today, he had a positive d-dimer. He subsequently underwent CT of the chest which did show pulmonary emboli. Workup was also suggestive of heart failure and new onset atrial fibrillation. The patient generally does not get flu shots, as he does not like to take any sort of medicine. His chart indicates he did have a Pneumovax in April 2016. April 21: -Today, the patient says his breathing is much easier. He also has less cough. He has not had any further chest pain. He denies palpitations. He did diurese over 2 L overnight. -Weighted heart rate was controlled with IV Lopressor. Coreg was started this morning. -Initial troponins were elevated, but are trending downward this morning. His EKG did not show any acute changes. Echocardiogram shows severe left ventricular global hypokinesis with reduced ejection fraction. CT scan from yesterday also showed significant plaques in all of his coronary arteries. -Overnight he did have heart rates up into the 130s. He also was feeling quite anxious. He received oral and then IV Ativan, and eventually felt more relaxed. The patient is on therapeutic dose Lovenox, and has also started Coumadin. Otherwise, he denies fever or chills. He reports his cough has decreased significantly. He denies chest pain or palpitations, and has much less shortness of breath. He denies abdominal pain, nausea or vomiting, diarrhea or constipation or dysuria. April 22: -Last night, the patient tried to get out of bed unassisted, and fell. He struck his left shoulder on a chair. During the evening, he got up with assistance to use a bedside commode, and became acutely diaphoretic and lightheaded. He reported significant left shoulder pain at that time. This was thought to be a vasovagal reaction. He has done okay since getting back to bed. This morning, he continues to complain of pain in the left shoulder with any movement. Shoulder x-rays this morning looked okay, but chest x-ray actually showed probable clavicle fracture. Follow-up clavicle films do confirm a fracture. -Echocardiogram showed significant systolic and diastolic CHF. Patient is being started on low doses of losartan, Lasix, Coreg, Lipitor.. He seems to be tolerating those relatively well at this time. Chest CT also showed severe coronary artery calcification. -Heart rates have been relatively well controlled with Coreg, and as needed IV Lopressor. -Patient is fully anticoagulated with Lovenox for his bilateral pulmonary emboli. He has been tolerating that. He thinks he did hit his head when he fell last night, but did not appear to have any neurologic symptoms. -He does have Parkinson's disease, and definitely has a Parkinson's gait. He is does report that this morning when he first woke up he felt like he was seeing the room sideways. He said that lasted an hour or 2, and then resolved. He is wondering if that is a medication side effect. Otherwise, today, the patient denies fever or chills, chest pain or palpitations. He thinks his shortness of breath is mostly resolved. He still has a bit of a cough. Chest x-ray does not suggest pneumonia. He denies GI or symptoms. April 23: Still reports some dyspnea this morning. Does have clavicle pain from his fracture. No cough or sputum production. Formal echocardiogram report reviewed , ejection fraction is moderately reduced, calculated EF of 36%, moderate global hypokinesis of the left ventricle. The left atrium is moderately to severely dilated. Still having bouts of tachycardia in the 140s, mostly related to anxiety, generally resolve within 60 seconds. Discussed anticoagulation with the patient, risks and benefits of Lovenox bridging to warfarin versus using the Xarelto or Eliquis. He preferred to continue with warfarin. April 24: Overall feeling improved today. Still coughing up some material from his bronchitis. Dyspnea improved. Did have a bout of fairly significant clavicle pain, felt lightheaded. There was while working PT. Later in the afternoon, felt better. - Constitutional Vitals: Vital Signs Temp Pulse Resp BP Pulse Ox 97.7 F 68 16 107/71 97 04/24/17 08:27 04/23/17 16:00 04/24/17 08:27 04/24/17 12:32 04/24/17 08:28 Period Temp Pulse Resp BP Sys/Brown Pulse Ox Last 24 Hr 97.7 F-98.0 F 16-18 89-184/52-121 93-98 Intake and Output 04/24/17 04/24/17 04/24/17 05:59 13:59 21:59 Intake Total 540 / 540 240 / 240 300 / 300 Output Total 750 / 750 650 / 650 Balance -210 / -210 -410 / -410 300 / 300 Intake & Output: Intake & Output 04/24/17 04/24/17 04/24/17 05:59 13:59 21:59 Intake Total 540 / 540 240 / 240 300 / 300 Output Total 750 / 750 650 / 650 Balance -210 / -210 -410 / -410 300 / 300 Intake: Oral 540 / 540 240 / 240 300 / 300 Output: Void Amount 750 / 750 650 / 650 Other: Meal Dinner Breakfast Lunch Percent of Meal Consumed 100% 100% 100% # Bowel Movements 0 - Additional findings Additional findings: General: Sitting in bed in no acute distress Chest: Left lung field rales, clear on the right Cardiovascular: Irregularly irregular, trace edema Abdomen: Soft, nontender Neuro: Alert, bradykinetic, tremor not as pronounced today. Medical - PN: Obj Da - Labs CBC & Chem 7: 04/24/17 03:53 04/24/17 03:53 Labs: Abnormal Lab Results 04/24/17 04/24/17 04/24/17 03:53 03:53 03:53 RBC 4.15 L Hgb 12.6 L Hct 36.4 L [place] # (Auto) PT 19.2 H INR 1.6 H BUN 24 H 04/23/17 04/23/17 04/23/17 03:53 03:53 03:53 RBC 4.14 L Hgb 12.7 L Hct 35.7 L [place] # (Auto) 1.0 H PT 16.4 H INR 1.3 H BUN 24 H 04/22/17 04/22/17 04/22/17 04:00 04:00 04:00 RBC 4.13 L Hgb 12.4 L Hct 36.7 L [place] # (Auto) 1.0 H PT 15.4 H INR 1.2 H BUN 26 H Meds: Medications Acetaminophen (Tylenol) 650 mg PO Q6HP PRN PRN Reason: PAIN/FEVER > 101 Last Admin: 04/24/17 16:39 Dose: 650 mg Albuterol Sulfate (Ventolin) 2.5 mg NEB Q4HRT PRN PRN Reason: Shortness Of Breath Or Wheezing Aspirin (Aspirin) 81 mg PO DAILY [facility] Last Admin: 04/24/17 08:14 Dose: 81 mg Atorvastatin Calcium (Lipitor) 5 mg PO HS [facility] Last Admin: 04/23/17 21:42 Dose: 5 mg Carbidopa/Levodopa (Sinemet 25/100) 1 tab PO TID [facility] Last Admin: 04/24/17 15:23 Dose: 1 tab Carvedilol (Coreg) 6.25 mg PO BIDCC [facility] Last Admin: 04/24/17 16:38 Dose: 6.25 mg Citalopram Hydrobromide (Celexa) 10 mg PO DAILY [facility] Last Admin: 04/24/17 08:14 Dose: 10 mg Docusate Sodium (Colace) 100 mg PO BID [facility] Last Admin: 04/24/17 08:15 Dose: 100 mg Enoxaparin Sodium (Lovenox) 100 mg SQ BID [facility] Last Admin: 04/24/17 08:13 Dose: 100 mg Famotidine (Pepcid) 20 mg PO BID [facility] Last Admin: 04/24/17 08:13 Dose: 20 mg Furosemide (Lasix) 40 mg PO BIDD [facility] Last Admin: 04/24/17 16:38 Dose: 40 mg Iron Carb/Multivit/[place]/Folic Acid (Multivitamin W/Minerals) 1 tab PO DAILY [facility] Last Admin: 04/24/17 08:15 Dose: 1 tab Lorazepam (Ativan) 0.25 mg PO Q6HP PRN PRN Reason: Anxiety Last Admin: 04/24/17 01:58 Dose: 0.25 mg Lorazepam (Ativan) 0.25 mg IV Q2-4HP PRN PRN Reason: ANXIETY/SEDATION Losartan Potassium (Cozaar) 25 mg PO DAILY [facility] Last Admin: 04/24/17 08:15 Dose: 25 mg Magnesium Hydroxide (Milk Of Magnesia) 30 ml PO DAILYP PRN PRN Reason: Constipation Metoprolol Tartrate (Lopressor) 5 mg IV Q4HP PRN PRN Reason: Tachyarrhythmias Last Admin: 04/21/17 08:14 Dose: 5 mg Morphine Sulfate (Morphine) 2 mg IV Q2H PRN PRN Reason: Chest Pain Naloxone HCl (Narcan) 0.1 mg IV Q2MIN PRN PRN Reason: Opiate Reversal Ondansetron HCl (Zofran) 4 mg IV Q4HP PRN PRN Reason: Nausea And Vomiting Amantadine Hcl 50 Mg (Tab) 1 dose PO BID@0900,1500 [facility] Last Admin: 04/24/17 15:23 Dose: 1 dose Vitamin B Complex (Vitamin B Complex) 1 cap PO DAILY [facility] Last Admin: 04/24/17 08:14 Dose: 1 cap Warfarin Sodium (Coumadin Per Pharmacy) 1 order PO [facility] [place] Medical - PN: A/P (1) Acute on chronic systolic (congestive) heart failure Problem details: Ejection fraction 36% on this echo with global hypokinesis Status: Acute Current Visit: Yes (2) Pulmonary emboli Problem details: Acute, right-sided Status: Acute Current Visit: Yes (3) Atrial fibrillation Problem details: New diagnosis at the time of admission Status: Acute Current Visit: Yes (4) Coronary artery calcification of [place] artery Status: Chronic Current Visit: Yes (5) Parkinson disease Status: Chronic Current Visit: Yes - Narrative A/P Narrative: 1. Pulmonary. Patient presents with chest pain and shortness of breath. CT scan is positive for pulmonary emboli. Also has new onset atrial fibrillation and CHF exacerbation.remained stable on Tuesday -Patient was loaded with Lovenox in the emergency room. Continue Lovenox until Coumadin is therapeutic. We'll require 5 days of heparins prior to stopping, as well as an INR greater than 2 for 2 days in a row. -Oxygen, albuterol nebulizer treatments, pulmonary toilet, cough meds as needed 2. Cardiac. Chest x-ray and CT scan are suggestive of CHF exacerbation. Acute on chronic LV systolic heart failure. volume status improved Tuesday, tolerating increased dose of carvedilol -Echocardiogram reported to show significant LV dysfunction, though when reviewing report on Tuesday, noted only moderately reduced LVEF at 36% (Had been 45-50% 08/07/2015). -Tolerating Coreg and losartan. Continue oral Lasix. Titrate up dose of carvedilol to help with rate control. Atrial fibrillation. New diagnosis, may be in response to pulmonary emboli, or a separate process. -Patient is anticoagulated on Lovenox, and will be transitioned to Coumadin. Echocardiogram findings would suggest that A. fib will be more or less permanent , and he should consider long-term anticoagulation. Occult coronary artery disease/elevated troponin-peaked at 0.09. -Suspect type II event with demand/perfusion mismatch due to RVR and PE. No EKG changes. Has significant coronary plaques on CT scan, and should undergo follow-up cardiac evaluation, possibly with a clear stress test and/or an angiogram. -He is at high risk, so started aspirin and Lipitor. Clinic notes from PCP indicate prior hesitancy to use statins. -Since he has not tolerated lisinopril in the past, started on losartan regarding both CHF and coronary artery disease. 3. Neurologic. History of Parkinson's disease. Continue Sinemet and amantadine. -encouraged the patient to consider follow-up with a neurology specialist at least once a year. -PT and OT evaluations. Swallow eval. 4. Infectious disease. Patient has had a recent upper respiratory infection. It appears he may have bronchitis, which may be stressing his heart more, though continues to look more comfortable Tuesday. 5. CODE STATUS: Full. 6. DVT prophylaxis: Lovenox. 7. History of depression and anxiety. Continue Celexa, as needed Ativan. 8. Fall. Orthopedic. -The patient fractured his left clavicle during fall night. Dr. Menchaca of orthopedics has seen him. PT and OT have also been requested. Medical - PN: Qual - VTE Deep Vein Thrombosis/Pulmonary Embolism Present on Admission: Yes
[2017-04-24] MEDS: ATORVASTATIN 20 MG TABLET PO SCH (20:57)
[2017-04-25 05:56] LABS: Basophils # (Auto) 0.1 K/mcL (0.0-0.3); Eosinophils # (Auto) 0.3 K/mcL (0.0-0.7); Eosinophils % (Auto) 3.7 % (0.0-7.0); Granulocytes % (Auto) 57.6 % (38.0-78.0); Lymphocytes # (Auto) 1.9 K/mcL (1.5-4.8); Lymphocytes % (Auto) 26.4 % (15.5-49.0); Mean Cell Volume 87.8 fL (80.0-100.0); Mean Corpuscular Hemoglobin 29.8 pg (26.0-34.0); Monocytes # (Auto) 0.8 K/mcL (0.1-0.9); Monocytes % (Auto) 11.3 % (1.0-12.0); Platelet Count 169 K/mcL (140-440); RBC 4.12 M/mcL (4.50-5.90); Red Cell Distribution Width 13.5 % (11.5-14.5)
[2017-04-25] MEDS: AMANTADINE HCL 50 MG PO SCH ×2 (08:29→15:09)
[2017-04-25] MEDS: FUROSEMIDE 20 MG TABLET PO SCH ×2 (08:36→16:34)
[2017-04-25] MEDS: ASPIRIN 81 MG TAB.CHEW PO SCH (08:36)
[2017-04-25] MEDS: CITALOPRAM 20 MG TABLET PO SCH (08:36)
[2017-04-25] MEDS: CARVEDILOL 6.25 MG TABLET PO SCH ×2 (08:36→16:34)
[2017-04-25] MEDS: VITAMIN B COMPLEX 1 CAPSULE PO SCH (08:37)
[2017-04-25] MEDS: LOSARTAN 25 MG TABLET PO SCH (08:37)
[2017-04-25] MEDS: ENOXAPARIN 100 MG/ML SYRINGE SQ SCH ×2 (08:37→21:04)
[2017-04-25] MEDS: FAMOTIDINE 20 MG TABLET PO SCH ×2 (08:37→21:05)
[2017-04-25] MEDS: CARBIDOPA/LEVODOPA 25/100 TABLET PO SCH ×3 (08:37→21:05)
[2017-04-25] MEDS: MULTIVIT,THER IRON,CA,FA & MIN 1 TABLET PO SCH (08:37)
[2017-04-25] MEDS: DOCUSATE SODIUM 100 MG CAPSULE PO SCH ×2 (08:37→21:05)
[2017-04-25] MEDS: ACETAMINOPHEN 325 MG TABLET PO PRN ×3 (08:50→21:05)
[2017-04-25] MEDS ORDERED: WARFARIN 7.5 MG TABLET PO ONE (14:00)
--- NOTE | 2017-04-25 20:27 | Internal Med Progress Note ---
Medical - PN: Subj Patient information: Note initiated : 04/25/17 at 8:25 pm Service Date, if different from initiated Date: [] Patient: Geoffrey Purdy 76 y/o M admitted on 04/20/17 for SOB x 1 Hour/ Pulmonary Emboli. Chief Complaint: follow-up pulmonary embolus, CHF, A. fib Interval history: April 20, 2017: History of present illness: Mr. Purdy is a 76 year old man who presents today complaining of left-sided chest discomfort since this morning. He apparently saw his primary care physician about 1 week ago complaining of cough and shortness of breath, and was treated for bronchitis with antibiotics, which he took, and an inhaler, which he did not. He also went back to see his primary care physician yesterday , complaining of continued chest congestion. They told him to complete the amoxicillin, and use the inhaler as needed. He notes that he has been sitting around quite a bit over the last week, as he is just been quite fatigued. 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 This morning he was resting in his recliner, and says he awakened with pain process chest that extended down into both arms. He says sometimes he will have that sensation when he is feeling anxious, so he did not worry but thought it would pass, it did not pass after several minutes, so he did call 911. He says a week ago he was coughing up thick chunks of sputum, and now his sputum seems clear. He is noticing more shortness of breath, particularly more dyspnea with exertion over the last week. He is not aware of fever or chills, headaches or dizziness, new eye or ear symptoms, sore throat. He denies palpitations. He denies abdominal pain, nausea or vomiting, diarrhea or constipation, dysuria. His notes that they have been cleaning out the patient's parents house, and he opened a refrigerator that had been open for a couple of years, and there was a great stench that came out of the air. She wonders if that could have affected his lungs. In the emergency room today, he had a positive d-dimer. He subsequently underwent CT of the chest which did show pulmonary emboli. Workup was also suggestive of heart failure and new onset atrial fibrillation. The patient generally does not get flu shots, as he does not like to take any sort of medicine. His chart indicates he did have a Pneumovax in April 2016. April 21: -Today, the patient says his breathing is much easier. He also has less cough. He has not had any further chest pain. He denies palpitations. He did diurese over 2 L overnight. -Weighted heart rate was controlled with IV Lopressor. Coreg was started this morning. -Initial troponins were elevated, but are trending downward this morning. His EKG did not show any acute changes. Echocardiogram shows severe left ventricular global hypokinesis with reduced ejection fraction. CT scan from yesterday also showed significant plaques in all of his coronary arteries. -Overnight he did have heart rates up into the 130s. He also was feeling quite anxious. He received oral and then IV Ativan, and eventually felt more relaxed. The patient is on therapeutic dose Lovenox, and has also started Coumadin. Otherwise, he denies fever or chills. He reports his cough has decreased significantly. He denies chest pain or palpitations, and has much less shortness of breath. He denies abdominal pain, nausea or vomiting, diarrhea or constipation or dysuria. April 22: -Last night, the patient tried to get out of bed unassisted, and fell. He struck his left shoulder on a chair. During the evening, he got up with assistance to use a bedside commode, and became acutely diaphoretic and lightheaded. He reported significant left shoulder pain at that time. This was thought to be a vasovagal reaction. He has done okay since getting back to bed. This morning, he continues to complain of pain in the left shoulder with any movement. Shoulder x-rays this morning looked okay, but chest x-ray actually showed probable clavicle fracture. Follow-up clavicle films do confirm a fracture. -Echocardiogram showed significant systolic and diastolic CHF. Patient is being started on low doses of losartan, Lasix, Coreg, Lipitor.. He seems to be tolerating those relatively well at this time. Chest CT also showed severe coronary artery calcification. -Heart rates have been relatively well controlled with Coreg, and as needed IV Lopressor. -Patient is fully anticoagulated with Lovenox for his bilateral pulmonary emboli. He has been tolerating that. He thinks he did hit his head when he fell last night, but did not appear to have any neurologic symptoms. -He does have Parkinson's disease, and definitely has a Parkinson's gait. He is does report that this morning when he first woke up he felt like he was seeing the room sideways. He said that lasted an hour or 2, and then resolved. He is wondering if that is a medication side effect. Otherwise, today, the patient denies fever or chills, chest pain or palpitations. He thinks his shortness of breath is mostly resolved. He still has a bit of a cough. Chest x-ray does not suggest pneumonia. He denies GI or symptoms. April 23: Still reports some dyspnea this morning. Does have clavicle pain from his fracture. No cough or sputum production. Formal echocardiogram report reviewed , ejection fraction is moderately reduced, calculated EF of 36%, moderate global hypokinesis of the left ventricle. The left atrium is moderately to severely dilated. Still having bouts of tachycardia in the 140s, mostly related to anxiety, generally resolve within 60 seconds. Discussed anticoagulation with the patient, risks and benefits of Lovenox bridging to warfarin versus using the Xarelto or Eliquis. He preferred to continue with warfarin. April 24: Overall feeling improved today. Still coughing up some material from his bronchitis. Dyspnea improved. Did have a bout of fairly significant clavicle pain, felt lightheaded. There was while working PT. Later in the afternoon, felt better. April 25: Sitting up in the chair today. Feeling kind of warm and a little woozy. 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 Having significant amounts of back pain, it is in his upper back along the trapezius on the left, the same side of the clavicle fracture. Dyspnea is improved, cough is improved. Heart rates generally been rate controlled on current dose of carvedilol. - Constitutional Vitals: Vital Signs Temp Pulse Resp BP Pulse Ox 97.8 F 68 16 118/97 93 04/25/17 19:23 04/23/17 16:00 04/25/17 19:23 04/25/17 19:23 04/25/17 19:23 Period Temp Pulse Resp BP Sys/Brown Pulse Ox Last 24 Hr 97.6 F-98.0 F 16-18 105-135/64-97 93-95 Intake and Output 04/25/17 04/25/17 04/25/17 05:59 13:59 21:59 Intake Total 300 / 300 Output Total 500 / 500 350 / 350 350 / 350 Balance -500 / -500 -350 / -350 -50 / -50 Weight 244 lb 6.4 oz Patient Weight 04/26/17 05:59 Weight 244 lb 6.4 oz Intake & Output: Intake & Output 04/25/17 04/25/17 04/25/17 05:59 13:59 21:59 Intake Total 300 / 300 Output Total 500 / 500 350 / 350 350 / 350 Balance -500 / -500 -350 / -350 -50 / -50 Weight 244 lb 6.4 oz Intake: Oral 300 / 300 Output: Void Amount 500 / 500 350 / 350 350 / 350 Other: Meal Breakfast Dinner Percent of Meal Consumed 100% 100% Feeding Ability Independent Independent - Additional findings Additional findings: General: Sitting up in chair, looks well and comfortable Chest: Rales on the left base to the mid, unchanged Cardiovascular: Irregularly irregular, trace edema Abdomen: Soft, nontender Neuro: Bradykinetic, tremor improved at today's exam. Medical - PN: Obj Da - Labs CBC & Chem 7: 04/25/17 03:42 04/24/17 03:53 Labs: Abnormal Lab Results 04/25/17 04/25/17 04/24/17 03:42 03:42 03:53 RBC 4.12 L Hgb 12.3 L Hct 36.1 L [place] # (Auto) PT 22.3 H 19.2 H INR 1.9 H 1.6 H BUN 04/24/17 04/24/17 04/23/17 03:53 03:53 03:53 RBC 4.15 L Hgb 12.6 L Hct 36.4 L [place] # (Auto) PT 16.4 H INR 1.3 H BUN 24 H 04/23/17 04/23/17 03:53 03:53 RBC 4.14 L Hgb 12.7 L Hct 35.7 L [place] # (Auto) 1.0 H PT INR BUN 24 H Meds: Medications Acetaminophen (Tylenol) 650 mg PO Q6HP PRN PRN Reason: PAIN/FEVER > 101 Last Admin: 04/25/17 15:09 Dose: 650 mg Albuterol Sulfate (Ventolin) 2.5 mg NEB Q4HRT PRN PRN Reason: Shortness Of Breath Or Wheezing Aspirin (Aspirin) 81 mg PO DAILY [facility] Last Admin: 04/25/17 08:36 Dose: 81 mg Atorvastatin Calcium (Lipitor) 5 mg PO HS [facility] Last Admin: 04/24/17 20:57 Dose: 5 mg Carbidopa/Levodopa (Sinemet 25/100) 1 tab PO TID [facility] Last Admin: 04/25/17 15:09 Dose: 1 tab Carvedilol (Coreg) 6.25 mg PO BIDCC [facility] Last Admin: 04/25/17 16:34 Dose: 6.25 mg Citalopram Hydrobromide (Celexa) 10 mg PO DAILY [facility] Last Admin: 04/25/17 08:36 Dose: 10 mg Docusate Sodium (Colace) 100 mg PO BID [facility] Last Admin: 04/25/17 08:37 Dose: 100 mg Enoxaparin Sodium (Lovenox) 100 mg SQ BID [facility] Last Admin: 04/25/17 08:37 Dose: 100 mg Famotidine (Pepcid) 20 mg PO BID [facility] Last Admin: 04/25/17 08:37 Dose: 20 mg Furosemide (Lasix) 20 mg PO BIDD [facility] Last Admin: 04/25/17 16:34 Dose: 20 mg Iron Carb/Multivit/Veterinary Pharmacologist/Folic Acid (Multivitamin W/Minerals) 1 tab PO DAILY [facility] Last Admin: 04/25/17 08:37 Dose: 1 tab Lorazepam (Ativan) 0.25 mg PO Q6HP PRN PRN Reason: Anxiety Last Admin: 04/24/17 20:57 Dose: 0.25 mg Lorazepam (Ativan) 0.25 mg IV Q2-4HP PRN PRN Reason: ANXIETY/SEDATION Losartan Potassium (Cozaar) 25 mg PO DAILY [facility] Last Admin: 04/25/17 08:37 Dose: 25 mg Magnesium Hydroxide (Milk Of Magnesia) 30 ml PO DAILYP PRN PRN Reason: Constipation Metoprolol Tartrate (Lopressor) 5 mg IV Q4HP PRN PRN Reason: Tachyarrhythmias Last Admin: 04/21/17 08:14 Dose: 5 mg Morphine Sulfate (Morphine) 2 mg IV Q2H PRN PRN Reason: Chest Pain Naloxone HCl (Narcan) 0.1 mg IV Q2MIN PRN PRN Reason: Opiate Reversal Ondansetron HCl (Zofran) 4 mg IV Q4HP PRN PRN Reason: Nausea And Vomiting Amantadine Hcl 50 Mg (Tab) 1 dose PO BID@0900,1500 [facility] Last Admin: 04/25/17 15:09 Dose: 1 dose Vitamin B Complex (Vitamin B Complex) 1 cap PO DAILY [facility] Last Admin: 04/25/17 08:37 Dose: 1 cap Warfarin Sodium (Coumadin Per Pharmacy) 1 order PO UD [facility] Medical - PN: A/P (1) Acute on chronic systolic (congestive) heart failure Problem details: Ejection fraction 36% on this echo with global hypokinesis Status: Acute Current Visit: Yes (2) Pulmonary emboli Problem details: Acute, right-sided Status: Acute Current Visit: Yes (3) Atrial fibrillation Problem details: New diagnosis at the time of admission Status: Acute Current Visit: Yes (4) Coronary artery calcification of [place] artery Status: Chronic Current Visit: Yes (5) Parkinson disease Status: Chronic Current Visit: Yes - Narrative A/P Narrative: 1. Pulmonary. Patient presents with chest pain and shortness of breath. CT scan is positive for pulmonary emboli. Also has new onset atrial fibrillation and CHF exacerbation. Remains stable Tuesday, tolerating adjustments to CHF meds. -Patient was loaded with Lovenox in the emergency room. Continue Lovenox until Coumadin is therapeutic. We'll require 5 days of heparins prior to stopping, as well as an INR greater than 2 for 2 days in a row. -Oxygen, albuterol nebulizer treatments, pulmonary toilet, cough meds as needed 2. Cardiac. Chest x-ray and CT scan are suggestive of CHF exacerbation. Acute on chronic LV systolic heart failure. volume status improved, tolerating increased dose of carvedilol -Echocardiogram reported to show significant LV dysfunction, though when reviewing report on Tuesday, noted only moderately reduced LVEF at 36% (Had been 45-50% 08/07/2015). -Tolerating Coreg at higher dose, and losartan. Continue oral Lasix. Atrial fibrillation. New diagnosis, may be in response to pulmonary emboli, or a separate process. -Patient is anticoagulated on Lovenox, and will be transitioned to Coumadin. Echocardiogram findings would suggest that A. fib will be more or less permanent , and he should consider long-term anticoagulation. Occult coronary artery disease/elevated troponin-peaked at 0.09. -Suspect type II event with demand/perfusion mismatch due to RVR and PE. No EKG changes. Has significant coronary plaques on CT scan, and should undergo follow-up cardiac evaluation, possibly with a clear stress test and/or an angiogram. -He is at high risk, so started aspirin and Lipitor. Clinic notes from PCP indicate prior hesitancy to use statins. -Since he has not tolerated lisinopril in the past, started on losartan regarding both CHF and coronary artery disease. 3. Neurologic. History of Parkinson's disease. Continue Sinemet and amantadine. -encouraged the patient to consider follow-up with a neurology specialist at least once a year. -PT and OT evaluations. Swallow eval. 4. Infectious disease. Patient has had a recent upper respiratory infection. It appears he may have bronchitis, which may be stressing his heart more, though continues to look more comfortable Tuesday. 5. CODE STATUS: Full. 6. DVT prophylaxis: Lovenox. 7. History of depression and anxiety. Continue Celexa, as needed Ativan. 8. Fall. Orthopedic. -The patient fractured his left clavicle during fall night. Dr. Menchaca of orthopedics has seen him. PT and OT have also been requested. has some left trapezius versus supraspinatus tenderness. May be splinting and spasm. Continue with pain control. Would like to avoid muscle relaxants due to sedative effect. Medical - PN: Qual - VTE Deep Vein Thrombosis/Pulmonary Embolism Present on Admission: Yes
[2017-04-25] MEDS: ATORVASTATIN 20 MG TABLET PO SCH (21:04)
[2017-04-25] MEDS: LORazepam 1 MG TABLET PO PRN (23:38)
[2017-04-26] MEDS: AMANTADINE HCL 50 MG PO SCH ×2 (09:15→15:00)
[2017-04-26] MEDS: ENOXAPARIN 100 MG/ML SYRINGE SQ SCH (09:15)
[2017-04-26] MEDS: CITALOPRAM 20 MG TABLET PO SCH (09:16)
[2017-04-26] MEDS: CARVEDILOL 6.25 MG TABLET PO SCH ×2 (09:16→17:27)
[2017-04-26] MEDS: MULTIVIT,THER IRON,CA,FA & MIN 1 TABLET PO SCH (09:16)
[2017-04-26] MEDS: FAMOTIDINE 20 MG TABLET PO SCH ×2 (09:16→21:14)
[2017-04-26] MEDS: LOSARTAN 25 MG TABLET PO SCH (09:16)
[2017-04-26] MEDS: DOCUSATE SODIUM 100 MG CAPSULE PO SCH ×2 (09:16→21:14)
[2017-04-26] MEDS: ASPIRIN 81 MG TAB.CHEW PO SCH (09:16)
[2017-04-26] MEDS: ACETAMINOPHEN 325 MG TABLET PO PRN ×3 (09:17→19:30)
[2017-04-26] MEDS: FUROSEMIDE 20 MG TABLET PO SCH ×2 (09:17→17:26)
[2017-04-26] MEDS: VITAMIN B COMPLEX 1 CAPSULE PO SCH (09:25)
[2017-04-26] MEDS: CARBIDOPA/LEVODOPA 25/100 TABLET PO SCH ×3 (09:25→21:14)
[2017-04-26 09:58] LABS: Basophils # (Auto) 0.1 K/mcL (0.0-0.3); Basophils % (Auto) 0.6 % (0.0-2.0); Blood Urea Nitrogen 29 mg/dl (8-23); Eosinophils # (Auto) 0.3 K/mcL (0.0-0.7); Eosinophils % (Auto) 3.3 % (0.0-7.0); Granulocytes % (Auto) 63.6 % (38.0-78.0); Lymphocytes # (Auto) 1.9 K/mcL (1.5-4.8); Lymphocytes % (Auto) 21.8 % (15.5-49.0); Mean Corpuscular HGB Conc 33.7 g/dL (31.0-36.0); Monocytes # (Auto) 0.9 K/mcL (0.1-0.9); Monocytes % (Auto) 10.7 % (1.0-12.0); Platelet Count 187 K/mcL (140-440); RBC 4.46 M/mcL (4.50-5.90); Red Cell Distribution Width 13.8 % (11.5-14.5)
--- NOTE | 2017-04-26 10:32 | Internal Med Progress Note ---
Medical - PN: Subj Patient information: Note initiated : 04/26/17 at 10:29 am Service Date, if different from initiated Date: [] Patient: Geoffrey Purdy 76 y/o M admitted on 04/20/17 for SOB x 1 Hour/ Pulmonary Emboli. Chief Complaint: f/u PE's, afib, CHF Interval history: April 20, 2017: History of present illness: Mr. Purdy is a 76 year old man who presents today complaining of left-sided chest discomfort since this morning. He apparently saw his primary care physician about 1 week ago complaining of cough and shortness of breath, and was treated for bronchitis with antibiotics, which he took, and an inhaler, which he did not. He also went back to see his primary care physician yesterday , complaining of continued chest congestion. They told him to complete the amoxicillin, and use the inhaler as needed. He notes that he has been sitting around quite a bit over the last week, as he is just been quite fatigued. 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 This morning he was resting in his recliner, and says he awakened with pain process chest that extended down into both arms. He says sometimes he will have that sensation when he is feeling anxious, so he did not worry but thought it would pass, it did not pass after several minutes, so he did call 911. He says a week ago he was coughing up thick chunks of sputum, and now his sputum seems clear. He is noticing more shortness of breath, particularly more dyspnea with exertion over the last week. He is not aware of fever or chills, headaches or dizziness, new eye or ear symptoms, sore throat. He denies palpitations. He denies abdominal pain, nausea or vomiting, diarrhea or constipation, dysuria. His notes that they have been cleaning out the patient's parents house, and he opened a refrigerator that had been open for a couple of years, and there was a great stench that came out of the air. She wonders if that could have affected his lungs. In the emergency room today, he had a positive d-dimer. He subsequently underwent CT of the chest which did show pulmonary emboli. Workup was also suggestive of heart failure and new onset atrial fibrillation. The patient generally does not get flu shots, as he does not like to take any sort of medicine. His chart indicates he did have a Pneumovax in April 2016. April 21: -Today, the patient says his breathing is much easier. He also has less cough. He has not had any further chest pain. He denies palpitations. He did diurese over 2 L overnight. -Weighted heart rate was controlled with IV Lopressor. Coreg was started this morning. -Initial troponins were elevated, but are trending downward this morning. His EKG did not show any acute changes. Echocardiogram shows severe left ventricular global hypokinesis with reduced ejection fraction. CT scan from yesterday also showed significant plaques in all of his coronary arteries. -Overnight he did have heart rates up into the 130s. He also was feeling quite anxious. He received oral and then IV Ativan, and eventually felt more relaxed. The patient is on therapeutic dose Lovenox, and has also started Coumadin. Otherwise, he denies fever or chills. He reports his cough has decreased significantly. He denies chest pain or palpitations, and has much less shortness of breath. He denies abdominal pain, nausea or vomiting, diarrhea or constipation or dysuria. April 22: -Last night, the patient tried to get out of bed unassisted, and fell. He struck his left shoulder on a chair. During the evening, he got up with assistance to use a bedside commode, and became acutely diaphoretic and lightheaded. He reported significant left shoulder pain at that time. This was thought to be a vasovagal reaction. He has done okay since getting back to bed. This morning, he continues to complain of pain in the left shoulder with any movement. Shoulder x-rays this morning looked okay, but chest x-ray actually showed probable clavicle fracture. Follow-up clavicle films do confirm a fracture. -Echocardiogram showed significant systolic and diastolic CHF. Patient is being started on low doses of losartan, Lasix, Coreg, Lipitor.. He seems to be tolerating those relatively well at this time. Chest CT also showed severe coronary artery calcification. -Heart rates have been relatively well controlled with Coreg, and as needed IV Lopressor. -Patient is fully anticoagulated with Lovenox for his bilateral pulmonary emboli. He has been tolerating that. He thinks he did hit his head when he fell last night, but did not appear to have any neurologic symptoms. -He does have Parkinson's disease, and definitely has a Parkinson's gait. He is does report that this morning when he first woke up he felt like he was seeing the room sideways. He said that lasted an hour or 2, and then resolved. He is wondering if that is a medication side effect. Otherwise, today, the patient denies fever or chills, chest pain or palpitations. He thinks his shortness of breath is mostly resolved. He still has a bit of a cough. Chest x-ray does not suggest pneumonia. He denies GI or symptoms. April 23: Still reports some dyspnea this morning. Does have clavicle pain from his fracture. No cough or sputum production. Formal echocardiogram report reviewed , ejection fraction is moderately reduced, calculated EF of 36%, moderate global hypokinesis of the left ventricle. The left atrium is moderately to severely dilated. Still having bouts of tachycardia in the 140s, mostly related to anxiety, generally resolve within 60 seconds. Discussed anticoagulation with the patient, risks and benefits of Lovenox bridging to warfarin versus using the Xarelto or Eliquis. He preferred to continue with warfarin. April 24: Overall feeling improved today. Still coughing up some material from his bronchitis. Dyspnea improved. Did have a bout of fairly significant clavicle pain, felt lightheaded. There was while working PT. Later in the afternoon, felt better. April 25: Sitting up in the chair today. Feeling kind of warm and a little woozy. 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 Having significant amounts of back pain, it is in his upper back along the trapezius on the left, the same side of the clavicle fracture. Dyspnea is improved, cough is improved. Heart rates generally been rate controlled on current dose of carvedilol. April 26: Ears more comfortable today, feels better. Still some left back/suprascapular pain, though improved. Less painful getting up out of bed to chair today. No dyspnea. Telemetry overnight shows intermittent sinus rhythm with PACs. Intermittent bouts of tachycardia to 140s at last 1-1-1/2 minutes and then resolved. Will be going to rehabilitation after hospital stay. - Constitutional Vitals: Vital Signs Temp Pulse Resp BP Pulse Ox 98.8 F 72 15 140/86 96 04/26/17 07:20 04/26/17 07:37 04/26/17 07:37 04/26/17 07:20 04/26/17 07:37 Period Temp Pulse Resp BP Sys/Brown Pulse Ox Last 24 Hr 97.2 F-98.8 F 72 15-18 112-140/64-97 93-96 Intake and Output 04/25/17 04/26/17 04/26/17 21:59 05:59 13:59 Intake Total 560 / 560 240 / 240 Output Total 650 / 650 250 / 250 Balance -90 / -90 - Weight 244 lb 6.4 oz Intake & Output: Intake & Output 04/25/17 04/26/17 04/26/17 21:59 05:59 13:59 Intake Total 560 / 560 240 / 240 Output Total 650 / 650 250 / 250 Balance -90 / - - Weight 244 lb 6.4 oz Intake: Oral 560 / 560 240 / 240 Output: Void Amount 650 / 650 250 / 250 Other: Meal sandwich, fruit cup, pudding Percent of Meal Consumed 75% Feeding Ability Assist with Tray Set Up - Additional findings Additional findings: General: Sitting up in the chair, no acute distress, pretty good spirits Chest: Coarse rales on left, unchanged, clear on right. Cardiovascular: Irregular, trace lower extremity edema and distal legs. Abdomen: Active bowel sounds, nontender Musculoskeletal: Mild tenderness in the musculature above the left scapula. Left arm remains in a sling. Neuro: Tremor remains, bradykinesia, generalized weakness Medical - PN: Obj Da - Labs CBC & Chem 7: 04/26/17 08:38 04/26/17 08:38 Labs: Abnormal Lab Results 04/26/17 04/26/17 04/26/17 08:38 08:38 03:33 RBC 4.46 L Hgb 12.9 L Hct 38.4 L PT 27.3 H INR 2.4 H BUN 29 H 04/25/17 04/25/17 04/24/17 03:42 03:42 03:53 RBC 4.12 L Hgb 12.3 L Hct 36.1 L PT 22.3 H 19.2 H INR 1.9 H 1.6 H BUN 04/24/17 04/24/17 03:53 03:53 RBC 4.15 L Hgb 12.6 L Hct 36.4 L PT INR BUN 24 H Meds: Medications Acetaminophen (Tylenol) 650 mg PO Q6HP PRN PRN Reason: PAIN/FEVER > 101 Last Admin: 04/26/17 09:17 Dose: 650 mg Albuterol Sulfate (Ventolin) 2.5 mg NEB Q4HRT PRN PRN Reason: Shortness Of Breath Or Wheezing Aspirin (Aspirin) 81 mg PO DAILY [facility] Last Admin: 04/26/17 09:16 Dose: 81 mg Atorvastatin Calcium (Lipitor) 5 mg PO HS [facility] Last Admin: 04/25/17 21:04 Dose: 5 mg Carbidopa/Levodopa (Sinemet 25/100) 1 tab PO TID [facility] Last Admin: 04/26/17 09:25 Dose: 1 tab [facility] Admin: 04/26/17 09:16 Dose: 6.25 mg Citalopram Hydrobromide (Celexa) 10 mg PO DAILY [facility] Last Admin: 04/26/17 09:16 Dose: 10 mg Docusate Sodium (Colace) 100 mg PO BID [facility] Last Admin: 04/26/17 09:16 Dose: 100 mg Famotidine (Pepcid) 20 mg PO BID [facility] Last Admin: 04/26/17 09:16 Dose: 20 mg Furosemide (Lasix) 20 mg PO BIDD [facility] Last Admin: 04/26/17 09:17 Dose: 20 mg Iron Carb/Multivit/Card Grader/Folic Acid (Multivitamin W/Minerals) 1 tab PO DAILY [facility] Last Admin: 04/26/17 09:16 Dose: 1 tab Lorazepam (Ativan) 0.25 mg PO Q6HP PRN PRN Reason: Anxiety Last Admin: 04/25/17 23:38 Dose: 0.25 mg Lorazepam (Ativan) 0.25 mg IV Q2-4HP PRN PRN Reason: ANXIETY/SEDATION Losartan Potassium (Cozaar) 25 mg PO DAILY [facility] Last Admin: 04/26/17 09:16 Dose: 25 mg Magnesium Hydroxide (Milk Of Magnesia) 30 ml PO DAILYP PRN PRN Reason: Constipation Metoprolol Tartrate (Lopressor) 5 mg IV Q4HP PRN PRN Reason: Tachyarrhythmias Last Admin: 04/21/17 08:14 Dose: 5 mg Morphine Sulfate (Morphine) 2 mg IV Q2H PRN PRN Reason: Chest Pain Naloxone HCl (Narcan) 0.1 mg IV Q2MIN PRN PRN Reason: Opiate Reversal Ondansetron HCl (Zofran) 4 mg IV Q4HP PRN PRN Reason: Nausea And Vomiting Last Admin: 04/26/17 09:04 Dose: 4 mg Amantadine Hcl 50 Mg (Tab) 1 dose PO BID@0900,1500 [facility] Last Admin: 04/26/17 09:15 Dose: 1 dose Vitamin B Complex (Vitamin B Complex) 1 cap PO DAILY [facility] Last Admin: 04/26/17 09:25 Dose: 1 cap Warfarin Sodium (Coumadin Per Pharmacy) 1 order PO UD [facility] Warfarin Sodium (Coumadin) 5 mg PO ONCE@1400 ONE Stop: 04/26/17 14:01 Medical - PN: A/P (1) Acute on chronic systolic (congestive) heart failure Problem details: Ejection fraction 36% on this echo with global hypokinesis Status: Acute Current Visit: Yes (2) Pulmonary emboli Problem details: Acute, right-sided Status: Acute Current Visit: Yes (3) Atrial fibrillation Problem details: New diagnosis at the time of admission Status: Acute Current Visit: Yes (4) Coronary artery calcification of [place] artery Status: Chronic Current Visit: Yes (5) Parkinson disease Status: Chronic Current Visit: Yes - Narrative A/P Narrative: 1. Pulmonary. Patient presents with chest pain and shortness of breath. CT scan is positive for pulmonary emboli. Also has new onset atrial fibrillation and CHF exacerbation. Stable Tuesday, still with intermittent bouts of tachycardia, but generally self limited. Tolerating carvedilol and losartan. -Patient was loaded with Lovenox in the emergency room. Continue Lovenox until Coumadin is therapeutic-INR >2 on Tuesday, if remains so on Tuesday, can stop Lovenox (will have had 5 days of heparins and an INR greater than 2 for 2 days in a row at that point). -Oxygen, albuterol nebulizer treatments, pulmonary toilet, cough meds as needed -Continue lovenox/warfarin, but Wed should be stable for D/C on warfarin alone, with a good idea of required doses. 2. Cardiac. Chest x-ray and CT scan are suggestive of CHF exacerbation. Acute on chronic LV systolic heart failure. volume status improved, tolerating carvedilol and losartan. -Echocardiogram reported to show significant LV dysfunction, though when reviewing report on Tuesday, noted only moderately reduced LVEF at 36% (Had been 45-50% 08/07/2015). -Continue Coreg, losartan and oral Lasix. Atrial fibrillation. New diagnosis, may be in response to pulmonary emboli, or a separate process. Intermittent bouts of NSR with multiple PAC's, will still require anticoagulation for stroke prophylaxis with intermittent AF ([id number] = 5) -Patient is anticoagulated on Lovenox, and will be transitioned to Coumadin. Occult coronary artery disease/elevated troponin-peaked at 0.09. -Suspect type II event with demand/perfusion mismatch due to RVR and PE. No EKG changes. Has significant coronary plaques on CT scan, and should undergo follow-up cardiac evaluation, possibly with a clear stress test and/or an angiogram. -He is at high risk, so started aspirin and Lipitor. Clinic notes from PCP indicate prior hesitancy to use statins. -Since he has not tolerated lisinopril in the past, started on losartan regarding both CHF and coronary artery disease. 3. Neurologic. History of Parkinson's disease. Continue Sinemet and amantadine. -encouraged the patient to consider follow-up with a neurology specialist at least once a year. -PT and OT evaluations. Swallow eval. 4. Infectious disease. Patient has had a recent upper respiratory infection. Generally resolved. 5. CODE STATUS: Full. 6. DVT prophylaxis: Lovenox. 7. History of depression and anxiety. Continue Celexa, as needed Ativan. 8. Fall. Orthopedic. -The patient fractured his left clavicle during fall night. Dr. Menchaca of orthopedics has seen him. PT and OT have also been requested. has some left trapezius versus supraspinatus tenderness. May be splinting and spasm. Continue with pain control. Would like to avoid muscle relaxants due to sedative effect. Medical - PN: Qual - VTE Deep Vein Thrombosis/Pulmonary Embolism Present on Admission: Yes
[2017-04-26] MEDS ORDERED: traMADol 50 MG TABLET PO PRN (13:50)
[2017-04-26] MEDS ORDERED: WARFARIN 5 MG TABLET PO ONE (14:00)
[2017-04-26] MEDS: ATORVASTATIN 20 MG TABLET PO SCH (21:14)
[2017-04-27] MEDS: ACETAMINOPHEN 325 MG TABLET PO PRN ×2 (04:20→09:22)
[2017-04-27] MEDS: LORazepam 1 MG TABLET PO PRN (04:24)
[2017-04-27] MEDS: AMANTADINE HCL 50 MG PO SCH (09:20)
[2017-04-27] MEDS: MULTIVIT,THER IRON,CA,FA & MIN 1 TABLET PO SCH (09:21)
[2017-04-27] MEDS: CITALOPRAM 20 MG TABLET PO SCH (09:21)
[2017-04-27] MEDS: DOCUSATE SODIUM 100 MG CAPSULE PO SCH (09:21)
[2017-04-27] MEDS: LOSARTAN 25 MG TABLET PO SCH (09:21)
[2017-04-27] MEDS: ASPIRIN 81 MG TAB.CHEW PO SCH (09:22)
[2017-04-27] MEDS: FAMOTIDINE 20 MG TABLET PO SCH (09:22)
[2017-04-27] MEDS: CARVEDILOL 6.25 MG TABLET PO SCH (09:22)
[2017-04-27] MEDS: FUROSEMIDE 20 MG TABLET PO SCH (09:22)
[2017-04-27] MEDS: CARBIDOPA/LEVODOPA 25/100 TABLET PO SCH (09:29)
[2017-04-27] MEDS: VITAMIN B COMPLEX 1 CAPSULE PO SCH (09:29)
--- NOTE | 2017-04-27 10:42 | Discharge Summary ---
Medical - DS: Prov Patient information: Note initiated : 04/27/17 at 10:37 am Service Date, if different from initiated Date: [] Patient: Geoffrey Purdy 76 y/o M admitted on 04/20/17 for SOB x 1 Hour/ Pulmonary Emboli. Chief Complaint: [] Date of admission: 04/20/17 13:28 Discharge date: 04/27/17 Primary care physician: Drew Barnes Admitting clinician: Radha Borges Consults: 04/22/17 11:35 Consult to Physician [CONS] Routine Comment: Consulting Provider: Macario Menchaca Reason For Exam: Physician to Consult 04/25/17 10:31 Consult to Physician [CONS] Routine Comment: Consulting Provider: [facility] Reason For Exam: Physician to Consult Discharging clinician: Krystal Haywood Medical - DS: Meds - Discharge Medications Prescriptions: LORazepam [Ativan] 0.25 mg PO Q6HP PRN #15 tab PRN Reason: Anxiety traMADol [Ultram] 50 mg PO Q4-6HP PRN #30 tab PRN Reason: Pain Warfarin [Coumadin] 6 mg PO DAILY #30 tablet Active and Home Medications: Home Medications Amantadine HCl [Amantadine] 50 mg PO BID 09/30/16 [History Confirmed 04/20/17 Last Taken Unknown] Calcium Carb/Vit B Comp/FA [Complex B-50 Tablet] 1 each PO DAILY 09/30/16 [ History Confirmed 04/20/17 Last Taken Unknown] Carbidopa/Levodopa [Carbidopa-Levodopa 25-100 Tab] 1 each PO TID 09/30/16 [ History Confirmed 04/20/17 Last Taken Unknown] Citalopram [Celexa] 5 mg PO DAILY 09/30/16 [History Confirmed 04/20/17 Last Taken Unknown] LORazepam [Ativan] 0.25 mg PO Q6HP PRN 09/30/16 [History Confirmed 04/20/17 Last Taken Unknown] Multivit-Min/FA/Lycopen/Lutein [Centrum Silver Men Tablet] 1 each PO DAILY 09/30 [History Confirmed 04/20/17 Last Taken Unknown] Triamterene/Hydrochlorothiazid [Triamterene-Hctz 37.5-25 mg Tb] 1 tab PO DAILY 09/30/16 [History Confirmed 04/20/17 Last Taken Unknown] Medical - DS: Hosp Hospital course: Presentation: April 20, 2017 From the H&P: "Mr. Purdy is a 76 year old man who presents complaining of left -sided chest discomfort since this morning. He apparently saw his primary care physician about 1 week ago complaining of cough and shortness of breath, and was treated for bronchitis with antibiotics, which he took, and an inhaler, which he did not. He also went back to see his primary care physician yesterday , complaining of continued chest congestion. They told him to complete the amoxicillin, and use the inhaler as needed. He notes that he has been sitting around quite a bit over the last week, as he is just been quite fatigued. 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 This morning he was resting in his recliner, and says he awakened with pain process chest that extended down into both arms. He says sometimes he will have that sensation when he is feeling anxious, so he did not worry but thought it would pass, it did not pass after several minutes, so he did call 911. He says a week ago he was coughing up thick chunks of sputum, and now his sputum seems clear. He is noticing more shortness of breath, particularly more dyspnea with exertion over the last week. In the emergency room today, he had a positive d-dimer. He subsequently underwent CT of the chest which did show pulmonary emboli. Workup was also suggestive of heart failure and new onset atrial fibrillation." Course: He is admitted and treated with Lovenox for his pulmonary embolism. He is started on warfarin. He continued on warfarin and was therapeutic for 2 days and wrote the time of discharge, Lovenox was stopped. I did discuss using either Xarelto or Eliquis instead of warfarin, however he and his decided to use warfarin for anticoagulation. As noted above, chest CT showed evidence of volume overload, on exam he had evidence of ointment overload as well. He does have a history of congestive heart failure, ejection fraction about 45% on his echo in 2016. Repeat echocardiogram here showed decreased EF to 36%. There was global hypokinesis without focal wall motion abnormalities. He was started on carvedilol which he tolerated, the dose was titrated to 6.25 mg twice a day which also served for rate control. He was started on low-dose losartan which he tolerated. His congestive heart failure is compensated at the time of discharge. He was in atrial fibrillation presentation, possibly secondary to his pulmonary emboli or heart failure. This was a new rhythm for him, as far as past records we had available noted. He and his do not recall history of atrial fibrillation either. He is rate controlled with metoprolol initially, subsequently with oral losartan. He had significantly dilated left atrium on echocardiogram, but by the time of discharge was having intermittent periods of sinus rhythm with frequent APCs mixed with atrial fibrillation. His [id number]- VASc score is 5, as noted he is on warfarin, both for PE and stroke prophylaxis. Initial troponin was elevated at 0.09. He had no injury pattern on EKG. His trended downward. Likely represents perfusion/demand mismatch from his A. fib/ RVR and/or pulmonary embolus. CT scan of the chest did reveal heavy calcification. Because of this he was started on low-dose aspirin and a statin for medical management of occult coronary disease. He would likely benefit from cardiology referral and risk stratification with stress testing in convalescence. Overnight on the second hospital night, the patient got up to use the restroom on his own. His foot became entangled in his sock and he fell onto a chair striking the left side of his chest. He is found to have a comminuted proximal left clavicle fracture. He was seen in consultation by Dr. Menchaca from orthopedics, who did not recommend surgical repair, he'll be treated with analgesia and a sling for comfort. He can do range of motion exercises with his elbow. Patient slowly progressed over the next several hospital days. He did have a few episodes of lightheadedness, thought to be vasovagal, often associated with pain from his shoulder, which improved during his hospitalization. His cough improved as his bronchitis symptoms tapered off during his hospitalization. He continued working with therapies, strengthening to the point he is able to be discharged to a skilled facility for further strengthening with a goal to return home to independent living with his . Discharge diagnosis: Right upper- and lower-lobe pulmonary emboli Secondary discharge diagnosis: Atrial fibrillation with RVR Intermittent AF alternating with SR/APC's at discharge Peak troponin 0.09 at admission, suspect demand/perfusion mismatch from RVR and/ or PE Recommend cardiology referral and stress testing in convalescence Acute on chronic systolic CHF, EF 36% during hospitalization Coronary atherosclerosis on CT, started on low dose aspirin and statin Proximal clavicle fracture after fall in hospital, non-operative management Parkinson's Disease, stable Reason for admission: Chest pain, dyspnea, pulmonary embolism Pertinent studies/significant findings: CXR 04/20/2017 IMPRESSION: 1. Mild CHF 2. Moderate hiatal hernia - stable 3. Minor bibasilar airspace seen - likely atelectasis CTA Chest 04/20/2017 IMPRESSION: 1. Small emboli within the segmental and subsegmental pulmonary arteries to the anterior segment right upper lobe and medial/posterior basilar segmental right lower lobe. 2. Mild enlargement of the central pulmonary arteries suggesting pulmonary hypertension. 3. Mild underlying CHF - better seen on plain film. Extremely heavy fibrofatty and calcific atheromatous chronic plaque throughout all the coronary arteries. It is highly likely the patient has either occlusive or subocclusive coronary artery disease. Suggest cardiology referral for stress testing 4. Moderate underlying chronic bronchitis. Chronic cicitration bronchiectasis/ atelectasis medial basilar segment left lower lobe 5. Moderate hiatal hernia XR Clavicle 04/22/2017 IMPRESSION: Moderately displaced, obliquely oriented fracture of the medial clavicle. CT Chest 04/22/2017 IMPRESSION: 1. Chronic bronchitis changes with cicitration bronchiectasis in the medial basilar segment left lower lobe. 2. Interval resolution CHF 3. Moderate hiatal hernia 4. Severely comminuted fracture through the medial left clavicle which has occurred since the chest CT two days ago. It should merely represent a simple fracture: There is no evidence of erosion or lysis to suggest suggest underlying infectious or neoplastic infiltrative pathology. No other osseous abnormalities Echocardiogram 04/20/2017 Impression: Left ventricle is moderately dilated. There is borderline concentric left ventricular hypertrophy. Left ventricular systolic function is moderately reduced, EF 36% noted in body of report. There is moderate global hypokinesis of the left ventricle. The left atrium is moderate to severely dilated. There is moderate posterior mitral annular calcification. The mitral valve chordae are thickened and/or calcified. Doppler findings suggest borderline pulmonary hypertension. There is aortic root sclerosis/calcification. - Time Spent with Patient Total time spent providing and/or coordinating discharge services: Greater than 30 minutes Medical - DS: Exam - Constitutional Vitals: Vital Signs Temp Pulse Resp BP Pulse Ox 04/27/17 09:58 80 16 92 04/27/17 08:02 96.9 F L 146/97 04/27/17 07:57 150/101 04/27/17 07:54 155/118 04/27/17 04:01 97 F 18 134/103 97 04/27/17 00:13 97.7 F 16 118/72 96 04/26/17 19:42 94 04/26/17 19:33 97.9 F 18 142/74 95 04/26/17 16:00 97.7 F 16 113/35 94 04/26/17 12:05 98.0 F 16 141/87 92 Intake and Output 04/26/17 04/27/17 04/27/17 21:59 05:59 13:59 Intake Total 240 / 240 Output Total 275 / 275 550 / 550 Balance -35 / -35 -550 / -550 Intake: Oral 240 / 240 Output: Void Amount 275 / 275 550 / 550 Other: # Voids 1 # Bowel Movements 1 Weight 240 lb 8 oz - Other Additional findings: General: Sitting in bed, no acute distress, mood is pretty good Chest: Some left lower rales Cardiovascular: Irregular, trace lower extremity edema Abdomen: Active bowel sounds, soft Neuro: Mood is good, tremor persist, bradykinesia unchanged. Medical - DS: Data Labs on day of discharge: Labs from last 24 hours 04/27/17 03:45 PT 28.9 H INR 2.6 H Medical - DS: A/P - Patient/Caregiver Discharge Instructions Activity: ambulate only with your walker, as per physical therapy, increase activity as tolerated Diet: Regular Diet Prescriptions: LORazepam [Ativan] 0.25 mg PO Q6HP PRN #15 tab PRN Reason: Anxiety traMADol [Ultram] 50 mg PO Q4-6HP PRN #30 tab PRN Reason: Pain Warfarin [Coumadin] 6 mg PO DAILY #30 tablet Other Amb Orders: OT Discharge Order Location: Determined By Patient Physical Therapy at Discharge - General Location: Determined By Patient ST Discharge Order Location: Determined By Patient - Problem Maintenance (1) Acute on chronic systolic (congestive) heart failure Status: Chronic Comment: Ejection fraction 36% on 04/20/2017 echo with global hypokinesis (2) Pulmonary emboli Status: Acute Comment: Acute, right-sided Qualifiers: Pulmonary embolism type: other Chronicity: acute Acute cor pulmonale presence: without acute cor pulmonale Qualified Code(s): I26.99 - Other pulmonary embolism without acute cor pulmonale (3) Atrial fibrillation Status: Acute Comment: New diagnosis at the time of admission 04/20/2017 Qualifiers: Atrial fibrillation type: unspecified Qualified Code(s): I48.91 - Unspecified atrial fibrillation (4) Coronary artery calcification of unga artery Status: Chronic (5) Parkinson disease Status: Chronic - Follow up Plan Follow up with: Drew Barnes MD [Primary Care Provider] - Macario Menchaca MD [Physician] - Disposition: Xfer SNF Prognosis: Good Rehab Potential: Fair I certify that the patient requires SNF services: Yes Overall status at discharge: patient is not back to baseline Medical - DS: Qual - VTE Deep Vein Thrombosis/Pulmonary Embolism Present on Admission: Yes
[2017-04-27] MEDS ORDERED: WARFARIN 5 MG TABLET PO ONE (14:00)
== END 2017-04-27 12:10 | DRG 175 ==
LOC: ED 07:52 → ICU 13:28
PROVIDERS: ADMIT Internal Medicine; ATTEND Internal Medicine